=== PATIENT | female | born 1990 | race Caucasian/White ===

== ENCOUNTER 2016-10-02 14:48 | Emergency (ER) | payer MEDICAID ==
[~2016-10-02] VITALS: Ht 157.5 cm; Wt 110.2 kg
[~2016-10-02 14:48] MED LIST: ACYC400T7 PO; BSP10T PO; CITA20TA12 PO; ISOS20TA5 PO; LANS15CA PO; VERA120T78 PO
--- OUTSIDE RECORDS SUMMARY | 2016-10-02 14:52 | XMS REPORT | Continuity of Care Document ---
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 No 07/23/16 12:43pm Do You Have a DPOA? No 07/23/16 12:43pm Chief Complaint and Reason for Visit Chief Complaint Headache/Migraine Reason for Visit Headache Problems Active Problems Medical Problem Onset Date Status Head ache Unknown Acute Migraine Unknown Acute Acute anxiety Unknown Acute Multiple body piercings Unknown Acute Nausea & vomiting Unknown Acute Allergic dermatitis Unknown Acute Diarrhea Unknown Acute Bronchitis Unknown Acute Irritable bowel syndrome (IBS) Unknown Acute UTI (lower urinary tract infection) Unknown Acute Stress Unknown Acute GERD (gastroesophageal reflux disease) Unknown Acute Chest pain, non-cardiac Unknown Acute Headache Unknown Acute Morbid obesity Unknown Chronic Depression Unknown Chronic Asthma Unknown Chronic Surgical Problem Onset Date Status H/O LEEP Unknown Resolved Hx of tonsillectomy Unknown Resolved Medications Current Home Medications Medication Dose Units Route Directions Days/Qty Instructions Start Date Citalopram Hydrobromide 10 Mg 10 Mg Oral Daily 10/07/14 Sucralfate 1 Gm 1 Gm Oral One Time Only 1 10/07/14 Promethazine Hcl 25 Mg 25 Mg Oral As Directed for Nausea/Vomiting 30 may take one every 6 hours 11/13/14 Cyclobenzaprine Hcl (Flexeril) 10 Mg 10 Mg Oral Twice Daily As Needed as needed for Muscle Spasm 10 11/15/14 Ondansetron Hcl 4 Mg 4 Mg Oral Every 6 Hours As Needed as needed for Nausea 12/19/14 Topiramate 25 Mg 25 Mg Oral Daily 01/22/15 Verapamil Hcl 120 Mg Oral Daily 01/22/15 Promethazine Hcl 25 Mg 25 Mg Oral Every 4-6 Hours As Needed as needed for Nausea 02/13/15 Isosorbide Mononitrate 60 Mg 60 Mg Oral Daily 02/18/15 Buspirone Hcl 10 Mg 10 Mg Oral Twice A Day 60 05/01/15 Promethazine Hcl 25 Mg 25 Mg Oral Every 4-6 Hours As Needed as needed for Nausea 07/23/16 Past Home Medications Medication Directions Ordered Status Isosorbide Mononitrate 10 Mg Tablet, 10 Mg Oral Daily 10/07/14 Discontinued Buspirone Hcl 15 Mg Tablet, 15 Mg Oral Daily 10/07/14 Discontinued Promethazine Hcl 50 Mg/1 Ml Vial, 25 Mg Intramusc One Time Only for Pain 09/09 Discontinued Hydromorphone Hcl 2 Mg/1 Ml Vial, 2 Mg Intramusc One Time Only for Pain 10/07 Discontinued Promethazine Hcl 25 Mg/1 Ml Vial, 25 Mg Iv/Im One Time Only 10/15/14 Discontinued Hydromorphone Hcl 2 Mg/1 Ml Vial, 2 Mg Iv/Im One Time Only 10/15/14 Discontinued Buspirone Hcl 10 Mg Tablet, 10 Mg Oral Daily 10/15/14 Discontinued Promethazine Hcl 25 Mg/1 Ml Vial, 25 Mg Intraven One Time Only 10/17/14 Discontinued Hydromorphone Hcl 2 Mg/1 Ml Vial, 1 Mg Intramusc One Time Only 10/17/14 Discontinued Hydromorphone Hcl 2 Mg/1 Ml Vial, 1 Mg Intramusc One Time Only 10/21/14 Discontinued Promethazine Hcl 50 Mg/1 Ml Vial, 25 Mg Intramusc One Time Only 10/21/14 Discontinued Isosorbide Mononitrate 60 Mg Tab.er.24h, 60 Mg Oral Daily 10/29/14 Discontinued Verapamil Hcl Tablet, 120 Mg Oral Daily 10/29/14 Discontinued Cefdinir 300 Mg Capsule, 300 Mg Oral Daily 10/29/14 Discontinued Baclofen 10 Mg Tablet, 10 Mg Oral Three Times Daily As Needed for Headache Discontinued Amox Tr/Potassium Clavulanate 1 Each Tablet, 875 Mg Oral Twice A Day for Sinusitis 10/29/14 Discontinued Buspirone Hcl 10 Mg Tablet, 10 Mg Oral Twice A Day 11/08/14 Discontinued Topiramate 25 Mg Tablet, 25 Mg Oral Daily 11/08/14 Discontinued Sodium Chloride 1,000 Ml Iv.soln, 1000 Ml Intraven One Time Only 11/12/14 Discontinued Promethazine Hcl 25 Mg/1 Ml Vial, 25 Mg Intraven One Time Only 11/12/14 Discontinued Orphenadrine Citrate 30 Mg/1 Ml Vial, 60 Mg Intramusc One Time Only 11/12/14 Discontinued Promethazine Hcl 25 Mg/ Ampul, 12.5 Mg Intramusc One Time Only 11/13/14 Discontinued Promethazine Hcl 50 Mg/1 Ml Vial, 50 Mg Intramusc One Time Only 11/15/14 Discontinued Sodium Chloride 1,000 Ml Iv.soln, 1000 Ml Intraven One Time Only 11/15/14 Discontinued Promethazine Hcl 25 Mg/1 Ml Vial, 50 Mg Intramusc One Time Only 12/02/14 Discontinued Sodium Chloride 1,000 Ml Iv.soln, 1000 Ml Intraven One Time Only 02/13/15 Discontinued Promethazine Hcl 50 Mg/1 Ml Vial, 50 Mg Intramusc One Time Only 02/13/15 Discontinued Ondansetron Hcl/Pf 4 Mg/2 Ml Vial, 4 Mg Intramusc One Time Only 03/15/15 Discontinued Ondansetron 4 Mg Tab.rapdis, 4 Mg Oral One Time Only 06/04/15 Discontinued Social History Social History Problem Response Recorded Date/Time History of Street Drugs? No 07/23/2016 12:42pm Hx Alcohol Use No 07/23/2016 12:42pm Query Response Start Date Stop Date Smoking status: Never smoker Hospital Discharge Instructions No hospital discharge instructions. Plan of Care Discharge Date 07/23/16 1:27pm Disposition HOME, ROUTINE DIS/ASST LIVING Condition at Discharge Stable & Improved Instructions/Education Provided Tension Headache (ED) Prescriptions See Medication Section Referrals No Primary Care Provider - Additional Instructions/Education Activity Restrictions: Call the doctor's office for an appointment in the next week. No driving today. IMPORTANT: We examined and treated you today on an emergency basis only. In most cases, you must let your doctor check you again. Tell your doctor about any new or lasting problems. We cannot recognize and treat all injuries or illnesses in one Emergency Department visit. If you had special tests, such as EKG's or X-rays, we will review them again within 24 hours. We will call you if there are any new suggestions. YOU ARE THE MOST IMPORTANT FACTOR IN YOUR RECOVERY. Follow these instructions carefully. Take your medicines as prescribed. Most important, see a doctor again as discussed. If you have problems that we have not discussed, call or visit your doctor right away. [facility] Emergency Department Functional Status No functional status results. Allergies, Adverse Reactions, Alerts Allergen Type Severity Reaction Status Last Updated Sulfa (Sulfonamide Antibiotics) Allergy Mild hives Active 10/07/14 Morphine Allergy Unknown Active 02/06/15 Tramadol Adverse Reaction Mild nausea/vomiting Active 10/07/14 Metoclopramide Allergy Unknown Active 07/18/16 Ketorolac Adverse Reaction Mild nausea vomiting Active 10/07/14 Immunizations No immunization records. Vital Signs Acute Vital Signs Vital Response Date/Time Temperature (Fahrenheit) 98.2 degrees F (97.6 - 99.5) 07/23/2016 12:47pm Pulse Pulse Rate 64 bpm (60 - 100) 07/23/2016 1:27pm Respiratory Rate 16 bpm (10 - 24) 07/23/2016 1:27pm Oxygen Saturation O2 Sat by Pulse Oximetry 98 % (93 - 100) 07/23/2016 1:27pm Blood Pressure 125/57 mm Hg 07/23/2016 1:27pm Blood Pressure Mean 79 mm Hg 07/23/2016 1:27pm Height 5 ft 1 in Weight 232 lb Body Mass Index 43.8 kg/m^2 Ambulatory Vital Signs Vital Response Date/Time Height 5 ft 1 in 06/04/2015 2:38pm Weight 217 lbs 06/04/2015 2:38pm Temperature, Tympanic 99.1 degrees F 06/04/2015 2:38pm Pulse Rate 69 bpm 06/04/2015 2:38pm Respiration Rate 20 bpm 06/04/2015 2:38pm Body Surface Area 2.11 m2 06/04/2015 2:38pm Body Mass Index 41.0 kg/m2 06/04/2015 2:38pm Pulse Oximetry Pulse Oximetry 06/04/2015 2:38pm Results Laboratory Results Test Name Result Units Flags Reference Collection Date/Time Result Date/ Time Comments Bedside Urine Color (LAB) STRAW YELLOW 07/15/2016 5:06pm 07/15/2016 5 :17pm Urine Appearance CLEAR CLEAR 07/15/2016 5:06pm 07/15/2016 5:17pm Bedside Urine Glucose (UA) NORMAL mg/dL NORMAL 07/15/2016 5:06pm 2015 5:17pm Bedside Urine Bilirubin (LAB) NEGATIVE NEGATIVE 07/15/2016 5:06pm 5:17pm Bedside Urine Ketones (LAB) NEGATIVE NEGATIVE 07/15/2016 5:06pm 07/15 5:17pm Bedside Urine Specific [place] (LAB 1.015 1.005-1.030 07/15/2016 5: 06pm 07/15/2016 5:17pm Bedside Urine Blood NEGATIVE NEGATIVE 07/15/2016 5:06pm 07/15/2016 5: 17pm Bedside Urine pH (LAB) 6.0 4.0-8.0 07/15/2016 5:06pm 07/15/2016 5: 17pm Bedside Urine Protein (LAB) NEGATIVE mg/dL NEGATIVE 07/15/2016 5:06pm 07/15/2016 5:17pm Bedside Urine Urobilinogen (LAB) NORMAL NORMAL 07/15/2016 5:06pm 5:17pm Bedside Urine Nitrite (LAB) NEGATIVE NEGATIVE 07/15/2016 5:06pm 07/15 5:17pm Bedside Urine Leukocyte Esterase (L TRACE * NEGATIVE 07/15/2016 5:06pm 07/15/2016 5:17pm White Blood Count 6.1 1000/cmm 3.80-10.80 07/15/2016 4:39pm 07/15/2016 4:59pm Red Blood Count 4.61 MIL/uL 3.80-5.10 07/15/2016 4:39pm 07/15/2016 4: 59pm Hemoglobin 14.3 g/dL 11.7-15.5 07/15/2016 4:39pm 07/15/2016 4:59pm Hematocrit 39.2 % 35.0-45.0 07/15/2016 4:39pm 07/15/2016 4:59pm Mean Corpuscular Volume 85.0 fL 80.0-100.0 07/15/2016 4:39pm 2015 4:59pm Mean Corpuscular Hemoglobin 31.0 pg 27.0-33.0 07/15/2016 4:39pm 2015 4:59pm Mean Corpuscular Hemoglobin Concent 36.5 g/dL H 32.0-36.0 07/15/2016 4: 39pm 07/15/2016 4:59pm Platelet Count 195 1000/uL 140-400 07/15/2016 4:39pm 07/15/2016 4:59pm Neutrophils (%) (Auto) 50.2 % 50.0-70.0 07/15/2016 4:39pm 07/15/2016 4: 59pm Lymphocytes (%) (Auto) 41.9 % 20.0-44.0 07/15/2016 4:39pm 07/15/2016 4: 59pm Monocytes (%) (Auto) 6.7 % 4.0-13.0 07/15/2016 4:39pm 07/15/2016 4: 59pm Eosinophils (%) (Auto) 1.0 % <=4.0 07/15/2016 4:39pm 07/15/2016 4:59pm Basophils (%) (Auto) 0.2 % <=3.0 07/15/2016 4:39pm 07/15/2016 4:59pm Neutrophils # (Auto) 3.06 1000/uL 1.90-7.60 07/15/2016 4:39pm 2015 4:59pm Lymphocytes # (Auto) 2.55 1000/uL 0.80-4.75 07/15/2016 4:39pm 2015 4:59pm Monocytes # (Auto) 0.41 1000/uL 0.15-1.40 07/15/2016 4:39pm 07/15/2016 4:59pm Eosinophils # (Auto) 0.06 1000/uL 0.00-0.40 07/15/2016 4:39pm 2015 4:59pm Basophils # (Auto) 0.01 1000/uL 0.00-0.30 07/15/2016 4:39pm 07/15/2016 4:59pm Red Cell Distribution Width 12.6 % 11.0-15.0 07/15/2016 4:39pm 2015 4:59pm Mean Platelet Volume 9.6 fL 8.7-11.9 07/15/2016 4:39pm 07/15/2016 4: 59pm Sodium Level 140 mmol/L 136-145 07/15/2016 4:39pm 07/15/2016 5:23pm Potassium Level 3.7 mmol/L 3.6-4.5 07/15/2016 4:39pm 07/15/2016 5:23pm Chloride Level 112 mmol/L H 97-109 07/15/2016 4:39pm 07/15/2016 5:23pm Carbon Dioxide Level 18 mEq/L 17-26 07/15/2016 4:39pm 07/15/2016 5: 23pm Anion Gap 14 8-18 07/15/2016 4:39pm 07/15/2016 5:23pm Glucose Level 102 mg/dL H 70-99 07/15/2016 4:39pm 07/15/2016 5:23pm Blood Urea Nitrogen 11.0 mg/dL 7.0-18.7 07/15/2016 4:39pm 07/15/2016 5: 23pm Creatinine 0.78 mg/dL 0.72-1.25 07/15/2016 4:39pm 07/15/2016 5:23pm Estimated GFR (Non- >=61 >60 07/15/2016 4:39pm 2015 5:23pm eGFR is measured in mL/min/1.73m2. If patient is -[place], multiply reported result by 1.21. BUN/Creatinine Ratio 14 7-25 07/15/2016 4:39pm 07/15/2016 5:23pm Calculated Osmolality 290 mOSM/kg 280-300 07/15/2016 4:39pm 07/15/2016 5:23pm Calcium Level 8.7 mg/dL 8.4-10.0 07/15/2016 4:39pm 07/15/2016 5:23pm Total Protein 6.3 g/dL 5.7-7.9 07/15/2016 4:39pm 07/15/2016 5:23pm Albumin 4.0 g/dL 3.3-4.8 07/15/2016 4:39pm 07/15/2016 5:23pm Globulin 2.3 g/dL 1.0-4.5 07/15/2016 4:39pm 07/15/2016 5:23pm Total Bilirubin 0.3 mg/gL 0.2-1.2 07/15/2016 4:39pm 07/15/2016 5:23pm Alkaline Phosphatase 67 U/L 40-150 07/15/2016 4:39pm 07/15/2016 5:23pm Aspartate Amino Transf (AST/SGOT) 25 U/L 5-34 07/15/2016 4:39pm 2015 5:23pm Alanine Aminotransferase (ALT/SGPT) 38 U/L 0-55 07/15/2016 4:39pm 07/15 5:23pm AST/ALT Ratio 0.66 0.10-40.00 07/15/2016 4:39pm 07/15/2016 5:23pm Creatine Kinase 92 U/L 29-168 07/15/2016 4:39pm 07/15/2016 5:23pm Creatine Kinase MB 0.6 ng/mL <=6.0 07/15/2016 4:39pm 07/15/2016 5:23pm Creatine Kinase MB Relative Index 1 % <6 07/15/2016 4:39pm 07/15/2016 5 :23pm Troponin < 0.01 ng/mL <=0.05 07/15/2016 4:39pm 07/15/2016 5:23pm Erythrocyte Sedimentation Rate 2 mm/hr 0-25 07/15/2016 4:39pm 2015 5:27pm Bedside Urine HCG, Qualitative NEGATIVE NEGATIVE 07/18/2016 5:45pm 5:55pm Bedside Urine Test QC ACCEPTABLE 07/18/2016 5:45pm 2015 5:55pm [id number] TESTING PERFORMED BY PERSONNEL OF: [address] [id number] Bedside Urine Color (LAB) YELLOW YELLOW 07/18/2016 5:45pm 07/18/2016 5:51pm Urine Appearance SLIGHTLY CLOUDY * CLEAR 07/18/2016 5:45pm 07/18/2016 5:51pm Bedside Urine Glucose (UA) NORMAL mg/dL NORMAL 07/18/2016 5:45pm 2015 5:51pm Bedside Urine Bilirubin (LAB) NEGATIVE NEGATIVE 07/18/2016 5:45pm 5:51pm Bedside Urine Ketones (LAB) NEGATIVE NEGATIVE 07/18/2016 5:45pm 07/18 5:51pm Bedside Urine Specific [place] (LAB 1.015 1.005-1.030 07/18/2016 5: 45pm 07/18/2016 5:51pm Bedside Urine Blood NEGATIVE NEGATIVE 07/18/2016 5:45pm 07/18/2016 5: 51pm Bedside Urine pH (LAB) 7.0 4.0-8.0 07/18/2016 5:45pm 07/18/2016 5: 51pm Bedside Urine Protein (LAB) NEGATIVE mg/dL NEGATIVE 07/18/2016 5:45pm 07/18/2016 5:51pm Bedside Urine Urobilinogen (LAB) NORMAL NORMAL 07/18/2016 5:45pm 5:51pm Bedside Urine Nitrite (LAB) NEGATIVE NEGATIVE 07/18/2016 5:45pm 07/18 5:51pm Bedside Urine Leukocyte Esterase (L NEGATIVE NEGATIVE 07/18/2016 5: 45pm 07/18/2016 5:51pm White Blood Count 5.8 1000/cmm 3.80-10.80 07/18/2016 5:30pm 07/18/2016 5:45pm Red Blood Count 4.44 MIL/uL 3.80-5.10 07/18/2016 5:30pm 07/18/2016 5: 45pm Hemoglobin 13.8 g/dL 11.7-15.5 07/18/2016 5:30pm 07/18/2016 5:45pm Hematocrit 38.0 % 35.0-45.0 07/18/2016 5:30pm 07/18/2016 5:45pm Mean Corpuscular Volume 85.6 fL 80.0-100.0 07/18/2016 5:30pm 2015 5:45pm Mean Corpuscular Hemoglobin 31.1 pg 27.0-33.0 07/18/2016 5:30pm 2015 5:45pm Mean Corpuscular Hemoglobin Concent 36.3 g/dL H 32.0-36.0 07/18/2016 5: 30pm 07/18/2016 5:45pm Platelet Count 202 1000/uL 140-400 07/18/2016 5:30pm 07/18/2016 5:45pm Neutrophils (%) (Auto) 50.1 % 50.0-70.0 07/18/2016 5:30pm 07/18/2016 5: 45pm Lymphocytes (%) (Auto) 39.8 % 20.0-44.0 07/18/2016 5:30pm 07/18/2016 5: 45pm Monocytes (%) (Auto) 8.7 % 4.0-13.0 07/18/2016 5:30pm 07/18/2016 5: 45pm Eosinophils (%) (Auto) 0.9 % <=4.0 07/18/2016 5:30pm 07/18/2016 5:45pm Basophils (%) (Auto) 0.5 % <=3.0 07/18/2016 5:30pm 07/18/2016 5:45pm Neutrophils # (Auto) 2.88 1000/uL 1.90-7.60 07/18/2016 5:30pm 2015 5:45pm Lymphocytes # (Auto) 2.29 1000/uL 0.80-4.75 07/18/2016 5:30pm 2015 5:45pm Monocytes # (Auto) 0.50 1000/uL 0.15-1.40 07/18/2016 5:30pm 07/18/2016 5:45pm Eosinophils # (Auto) 0.05 1000/uL 0.00-0.40 07/18/2016 5:30pm 2015 5:45pm Basophils # (Auto) 0.03 1000/uL 0.00-0.30 07/18/2016 5:30pm 07/18/2016 5:45pm Red Cell Distribution Width 12.9 % 11.0-15.0 07/18/2016 5:30pm 2015 5:45pm Mean Platelet Volume 9.4 fL 8.7-11.9 07/18/2016 5:30pm 07/18/2016 5: 45pm Sodium Level 142 mmol/L 136-145 07/18/2016 5:30pm 07/18/2016 6:00pm Potassium Level 3.4 mmol/L L 3.6-4.5 07/18/2016 5:30pm 07/18/2016 6: 00pm Chloride Level 113 mmol/L H 97-109 07/18/2016 5:30pm 07/18/2016 6:00pm Carbon Dioxide Level 22 mEq/L 17-26 07/18/2016 5:30pm 07/18/2016 6: 00pm Anion Gap 10 8-18 07/18/2016 5:30pm 07/18/2016 6:00pm Glucose Level 93 mg/dL 70-99 07/18/2016 5:30pm 07/18/2016 6:00pm Blood Urea Nitrogen 10.1 mg/dL 7.0-18.7 07/18/2016 5:30pm 07/18/2016 6: 00pm Creatinine 0.84 mg/dL 0.72-1.25 07/18/2016 5:30pm 07/18/2016 6:00pm Estimated GFR (Non- >=61 >60 07/18/2016 5:30pm 2015 6:00pm eGFR is measured in mL/min/1.73m2. If patient is -[place], multiply reported result by 1.21. BUN/Creatinine Ratio 12 7-25 07/18/2016 5:30pm 07/18/2016 6:00pm Calculated Osmolality 293 mOSM/kg 280-300 07/18/2016 5:30pm 07/18/2016 6:00pm Calcium Level 8.8 mg/dL 8.4-10.0 07/18/2016 5:30pm 07/18/2016 6:00pm Total Protein 6.4 g/dL 5.7-7.9 07/18/2016 5:30pm 07/18/2016 6:00pm Albumin 4.1 g/dL 3.3-4.8 07/18/2016 5:30pm 07/18/2016 6:00pm Globulin 2.3 g/dL 1.0-4.5 07/18/2016 5:30pm 07/18/2016 6:00pm Total Bilirubin 0.5 mg/gL 0.2-1.2 07/18/2016 5:30pm 07/18/2016 6:00pm Alkaline Phosphatase 68 U/L 40-150 07/18/2016 5:30pm 07/18/2016 6:00pm Aspartate Amino Transf (AST/SGOT) 18 U/L 5-34 07/18/2016 5:30pm 2015 6:00pm Alanine Aminotransferase (ALT/SGPT) 30 U/L 0-55 07/18/2016 5:30pm 07/18 6:00pm AST/ALT Ratio 0.60 0.10-40.00 07/18/2016 5:30pm 07/18/2016 6:00pm Lipase 39 U/L 8-78 07/18/2016 5:30pm 07/18/2016 6:00pm Prothrombin Time 10.0 seconds 9.7-12.1 07/18/2016 5:30pm 07/18/2016 5: 51pm Prothromb Time International Ratio 0.9 0.9-1.1 07/18/2016 5:30pm 5:51pm INR reference interval applies to patients not on anticoagulant therapy. The INR is a calculated value and is used to guide oral anticoagulation therapy. Recommended INR Range Moderate Intensity Warfarin Therapy 2.0 - 3.0 Higher Intensity Warfarin Therapy 2.5 - 3.5 Activated Partial Thromboplast Time 29 seconds 24-33 07/18/2016 5:30pm 07/18/2016 5:51pm Thyroid Stimulating Hormone (TSH) 3.38 uIU/mL 0.40-4.50 07/18/2016 5: 30pm 07/18/2016 6:21pm Creatine Kinase 119 U/L 29-168 07/18/2016 5:30pm 07/18/2016 6:05pm Creatine Kinase MB 0.7 ng/mL <=6.0 07/18/2016 5:30pm 07/18/2016 6:05pm Creatine Kinase MB Relative Index 1 % <6 07/18/2016 5:30pm 07/18/2016 6 :05pm Troponin < 0.01 ng/mL <=0.05 07/18/2016 5:30pm 07/18/2016 6:05pm B-Type Natriuretic Peptide 74.3 pg/mL <100.0 07/18/2016 5:30pm 2015 6:20pm B-type natriuretic peptide (BNP) is indicated as an aid in the diagnosis and assessment of the severity of heart failure. Levels of BNP have been shown to be elevated in patients with cardiac dysfunction. BNP levels provide clinically useful information concerning the diagnosis and management of left ventricular dysfunction and heart failure, which complements other diagnostic testing procedures. White Blood Count 6.1 1000/cmm 3.80-10.80 07/21/2016 4:0307/21/2016 4:32pm Red Blood Count 5.00 MIL/uL 3.80-5.10 07/21/2016 4:0307/21/2016 4: 32pm Hemoglobin 15.1 g/dL 11.7-15.5 07/21/2016 4:0307/21/2016 4:32pm Hematocrit 42.1 % 35.0-45.0 07/21/2016 4:07/21/2016 4:32pm Mean Corpuscular Volume 84.2 fL 80.0-100.0 07/21/2016 4:2015 4:32pm Mean Corpuscular Hemoglobin 31.3 pg 27.0-33.0 07/21/2016 4:2015 4:32pm Mean Corpuscular Hemoglobin Concent 37.2 g/dL H 32.0-36.0 07/21/2016 4: 07/21/2016 4:32pm Platelet Count 215 1000/uL 140-400 07/21/2016 4:07/21/2016 4:32pm Neutrophils (%) (Auto) 51.1 % 50.0-70.0 07/21/2016 4:07/21/2016 4: 32pm Lymphocytes (%) (Auto) 40.2 % 20.0-44.0 07/21/2016 4:07/21/2016 4: 32pm Monocytes (%) (Auto) 6.6 % 4.0-13.0 07/21/2016 4:07/21/2016 4: 32pm Eosinophils (%) (Auto) 1.1 % <=4.0 07/21/2016 4:07/21/2016 4:32pm Basophils (%) (Auto) 1.0 % <=3.0 07/21/2016 4:0307/21/2016 4:32pm Neutrophils # (Auto) 3.11 1000/uL 1.90-7.60 07/21/2016 4:2015 4:32pm Lymphocytes # (Auto) 2.45 1000/uL 0.80-4.75 07/21/2016 4:03pm 2015 4:32pm Monocytes # (Auto) 0.40 1000/uL 0.15-1.40 07/21/2016 4:03pm 07/21/2016 4:32pm Eosinophils # (Auto) 0.07 1000/uL 0.00-0.40 07/21/2016 4:03pm 2015 4:32pm Basophils # (Auto) 0.06 1000/uL 0.00-0.30 07/21/2016 4:03pm 07/21/2016 4:32pm Red Cell Distribution Width 12.7 % 11.0-15.0 07/21/2016 4:03pm 2015 4:32pm Mean Platelet Volume 9.4 fL 8.7-11.9 07/21/2016 4:03pm 07/21/2016 4: 32pm Sodium Level 142 mmol/L 136-145 07/21/2016 4:03pm 07/21/2016 4:24pm Potassium Level 3.8 mmol/L 3.6-4.5 07/21/2016 4:03pm 07/21/2016 4:24pm Chloride Level 109 mmol/L 97-109 07/21/2016 4:03pm 07/21/2016 4:24pm Carbon Dioxide Level 23 mEq/L 17-26 07/21/2016 4:03pm 07/21/2016 4: 24pm Anion Gap 14 8-18 07/21/2016 4:03pm 07/21/2016 4:24pm Glucose Level 83 mg/dL 70-99 07/21/2016 4:03pm 07/21/2016 4:24pm Blood Urea Nitrogen 9.0 mg/dL 7.0-18.7 07/21/2016 4:03pm 07/21/2016 4: 24pm Creatinine 0.90 mg/dL 0.72-1.25 07/21/2016 4:03pm 07/21/2016 4:24pm Estimated GFR (Non- >=61 >60 07/21/2016 4:03pm 2015 4:24pm eGFR is measured in mL/min/1.73m2. If patient is -[place], multiply reported result by 1.21. BUN/Creatinine Ratio 10 7-25 07/21/2016 4:03pm 07/21/2016 4:24pm Calculated Osmolality 292 mOSM/kg 280-300 07/21/2016 4:03pm 07/21/2016 4:24pm Calcium Level 9.4 mg/dL 8.4-10.0 07/21/2016 4:03pm 07/21/2016 4:24pm Ambulatory Laboratory Results Test Name Result Units Flags Reference Result Date/Time Comments Bedside Blood Urea Nitrogen 10 mg/dL 06/04/2015 3:34pm Bedside Chloride 105 mmol/L 06/04/2015 3:34pm Bedside Total CO2 23 mmol/L 06/04/2015 3:34pm Bedside Creatinine 1.0 mg/dL 06/04/2015 3:34pm N/A ACCEPTABLE 10/29/2014 3:32pm Influenza Type A Antigen NEGATIVE(N=NEGATIVE) 10/29/2014 3:32pm Influenza Type B Antigen NEGATIVE(N=NEGATIVE) 10/29/2014 3:32pm Bedside Anion Gap 18 mmol/L 06/04/2015 3:34pm Bedside Glucose 98 mg/dL 06/04/2015 3:34pm Bedside Hematocrit 41 % 06/04/2015 3:34pm Bedside Hemoglobin (Calculated) 13.9 g/dL 06/04/2015 3:34pm Bedside Ionized Calcium (Senthil) 1.19 mmol/L 06/04/2015 3:34pm Bedside Potassium 3.9 mmol/L 06/04/2015 3:34pm Urinalysis Dipstick [id number] 06/04/2015 3:12pm Bedside Sodium 141 mmol/L 06/04/2015 3:34pm Bedside Urine HCG, Qualitative NEGATIVE(N=NEGATIVE) 02/13/2015 12: 03pm N/A ACCEPTABLE 02/13/2015 12:03pm Bedside White Blood Count 6.5 10^9/L 4.0-11.0 06/04/2015 3:33pm Bedside Urine Bilirubin (LAB) NEGATIVE(N=NEG) 06/04/2015 3:12pm Bedside Urine Blood NEGATIVE(N=NEG) 06/04/2015 3:12pm Bedside Urine Clarity CLEAR (N=CLEAR) 06/04/2015 3:12pm Bedside Urine Color (LAB) STRAW (N=CLEAR) 06/04/2015 3:12pm Bedside Urine Glucose (UA) NEGATIVE (N=NEG) 06/04/2015 3:12pm Bedside Urine Ketones (LAB) NEGATIVE (N=NEG) 06/04/2015 3:12pm Bedside Urine Leukocyte Esterase (L NEGATIVE (N=NEG) 06/04/2015 3: 12pm Bedside Urine Nitrite (LAB) NEGATIVE (N=NEG) 06/04/2015 3:12pm Bedside Urine pH (LAB) 6.0 (N=5-6) 06/04/2015 3:12pm Bedside Urine Protein (LAB) NEGATIVE (N=NEG) 06/04/2015 3:12pm Bedside Urine Specific [place] (LAB 1.030(N=1.000-1.025) 06/04/2015 3:12pm Bedside Urine Urobilinogen (LAB) 0.2 mg/dL (N=<=1.0) 06/04/2015 3: 12pm Procedures Procedure Status Date Provider(s) ROUTINE VENIPUNCTURE Completed 07/15/16 CHEST X-RAY 1 VIEW FRONTAL Completed 07/15/16 COMPREHEN METABOLIC PANEL Completed 07/15/16 URINALYSIS NONAUTO W/SCOPE Completed 07/15/16 ASSAY OF CK (CPK) Completed 07/15/16 CREATINE MB FRACTION Completed 07/15/16 ASSAY OF TROPONIN QUANT Completed 07/15/16 COMPLETE CBC W/AUTO DIFF WBC Completed 07/15/16 RBC SED RATE AUTOMATED Completed 07/15/16 ELECTROCARDIOGRAM TRACING Completed 07/15/16 THER/PROPH/DIAG INJ IV PUSH Completed 07/15/16 TX/PRO/DX INJ NEW DRUG ADDON Completed 07/15/16 EMERGENCY DEPT VISIT Completed 07/15/16 CT ABD & PELV W/CONTRAST Completed 07/18/16 COMPREHEN METABOLIC PANEL Completed 07/18/16 URINALYSIS NONAUTO W/SCOPE Completed 07/18/16 URINE TEST Completed 07/18/16 ASSAY OF CK (CPK) Completed 07/18/16 CREATINE MB FRACTION Completed 07/18/16 ASSAY OF LIPASE Completed 07/18/16 ASSAY OF NATRIURETIC PEPTIDE Completed 07/18/16 ASSAY THYROID STIM HORMONE Completed 07/18/16 ASSAY OF TROPONIN QUANT Completed 07/18/16 COMPLETE CBC W/AUTO DIFF WBC Completed 07/18/16 PROTHROMBIN TIME Completed 07/18/16 THROMBOPLASTIN TIME PARTIAL Completed 07/18/16 ELECTROCARDIOGRAM TRACING Completed 07/18/16 THER/PROPH/DIAG INJ SC/IM Completed 07/18/16 THER/PROPH/DIAG INJ IV PUSH Completed 07/18/16 TX/PRO/DX INJ NEW DRUG ADDON Completed 07/18/16 EMERGENCY DEPT VISIT Completed 07/18/16 12-lead electrocardiogram Active 07/15/16 Vandana Dimas APRN X-ray of chest, single view Active 07/15/16 Vandana Dimas APRN 12-lead electrocardiogram Active 07/18/16 Lala Duarte PA-C Computed tomography of abdomen and pelvis with contrast Active 07/18/16 Lala Duarte PA-C Computed tomography of head without contrast Active 07/21/16 Bryon Crow Encounters Encounter Location Arrival/Admit Date Discharge/Depart Date Attending Provider Departed Emergency Room [facility] 07/23/16 12:44pm 1:27pm Bart Olivas Departed Emergency Room [facility] 07/21/16 2:32pm 5:44pm Bryon Crow Departed Emergency Room [facility] 07/18/16 5:07pm 7:56pm Lala Duarte PA-C Departed Emergency Room [facility] 07/15/16 4:14pm 6:00pm Vandana Dimas APRN Recent Diagnosis
--- NOTE | 2016-10-02 15:12 | NUR ---
pt seems to be a poor historian, able to answer "ER questions" before they are asked. puts them in her dialogue "nothing makes it better, nothing makes it worse", etc... rubio to list her allergies or her meds she takes daily
[2016-10-02] MEDS ORDERED: ONDANSETRON 2 MG/ML (Z0FRAN) 2 ML VIAL IV ONE (15:40)
[2016-10-02] MEDS ORDERED: ORPHENADRINE 60 MG/2 ML (NORFLEX) AMP IV ONE ×2 (15:40→16:30)
[2016-10-02] MEDS ORDERED: diphenhydrAMINE 50 MG/ML INJ (BENADRYL) IV ONE (15:40)
[2016-10-02] MEDS ORDERED: SODIUM CHLORIDE FLUSH 10 ML SYR IV PRN (15:40)
[2016-10-02] MEDS ORDERED: SODIUM CHLORIDE FLUSH 3 ML SYR IV PRN (15:50)
[2016-10-02 15:57] LABS: BASOPHILS % (AUTO) 0 % (0-2); EOSINOPHILS # (AUTO) 0.1 10^3uL; EOSINOPHILS % (AUTO) 2 % (0-4); LYMPHOCYTES # (AUTO) 2.5 X10^3; MEAN CORPUSCULAR HEMOGLOBIN 30.3 PG (26.0-34.0); MEAN CORPUSCULAR VOLUME 84 FL (80-100); MEAN PLATELET VOLUME 9.7 FL (6.0-9.5); MONOCYTES # (AUTO) 0.4 X10^3; MONOCYTES % (AUTO) 8 % (3-11); NEUTROPHILS # (AUTO) 2.7 X10^3; NEUTROPHILS % (AUTO) 46 % (51-67); PLATELET COUNT 215 10^3uL (150-450); WHITE BLOOD COUNT 5.76 10^3uL (4.0-11.0)
[2016-10-02] MEDS ORDERED: OMEP20CA12 PO (16:05)
[2016-10-02 16:08] LABS: ALBUMIN 4.8 g/dL (3.4-5.0); ANION GAP 16.3 MEQ/L (3-15); CALCULATED IONIZED CALCIUM 3.9 mg/dL (3.8-4.6); TOTAL PROTEIN 7.8 g/dL (6.4-8.5)
--- NOTE | 2016-10-02 16:15 | NUR ---
NOW REPORTS HER HEADACHE HAS INCREASED FROM "6" TO "10" AND THAT HER CHEST IS HURTING MORE WITH DEEP BREATH OR COUGH.
[2016-10-02] MEDS ORDERED: HYDROmorphone 1 MG/ML (DILAUDID) SYRINGE IV ONE (16:30)
[2016-10-02] MEDS ORDERED: methylPREDNISolone 125 MG (Solu-MEDROL) VIAL IV ONE (16:55)
[2016-10-02 17:53] VITALS: BP 121/70
[2016-10-05] MEDS ORDERED: CITA40TA5 PO (10:39)
[2016-10-05] MEDS ORDERED: MIRT30TA PO (10:53)
[2016-10-05] MEDS ORDERED: TOPI25TA36 PO (10:53)
[2016-10-05] MEDS ORDERED: SULI200T8 PO (10:53)
[2016-10-05] MEDS ORDERED: ALBU8CC IH (10:53)
[2016-10-05] MEDS ORDERED: PROP20TA5 PO (10:53)
[2016-10-05] MEDS ORDERED: PANT40TA2 PO (10:53)
[2016-10-05] MEDS ORDERED: PRM25T PO (10:53)
[2016-10-08] MEDS ORDERED: IBP200T PO (07:54)
[2016-10-08] MEDS ORDERED: AC325T PO (07:54)
[2016-10-08] MEDS ORDERED: ONDAN4ODT PO (07:54)
[2016-10-09] MEDS ORDERED: BUSP10TA95 PO (19:58)
[2016-10-20] MEDS ORDERED: AMIT25TA9 PO (19:14)
[2016-10-20] MEDS ORDERED: DICY10CA26 PO (19:14)
[2016-10-20] MEDS ORDERED: SCR1T PO (19:14)
[2016-10-23] MEDS ORDERED: DICY10CA59 PO (02:46)
[2016-10-23] MEDS ORDERED: METR500T17 PO (21:31)
[2016-10-23] MEDS ORDERED: CEPH-507 PO (21:31)
[2016-11-05] MEDS ORDERED: DULO30CA3 PO (20:34)
== END 2016-10-02 17:55 | disposition home or self-care (01) ==
LOC: ED 14:50
DX: G43.109 Migraine with aura, not intractable, without status migrainosus (principal)
CPT/HCPCS: 36415; 80053; 85025; 86140; 96361; 96374; 96375; 96376; 99283; J1170; J1200; J2360; J2405; J2930; J7030

== ENCOUNTER 2016-10-03 10:42 | Emergency (ER) | payer MEDICAID ==
[~2016-10-03] VITALS: Ht 157.5 cm; Wt 110.0 kg
[~2016-10-03 10:42] MED LIST changes: +OMEP20CA12 PO
[2016-10-03] MEDS ORDERED: METOCLOPRAMIDE 10 MG/2 ML (REGLAN) VIAL IV ONE (11:05)
[2016-10-03] MEDS ORDERED: diphenhydrAMINE 50 MG/ML INJ (BENADRYL) IV ONE (11:30)
[2016-10-03 11:44] LABS: BASOPHILS % (AUTO) 0 % (0-2); EOSINOPHILS % (AUTO) 0 % (0-4); LYMPHOCYTES # (AUTO) 1.9 X10^3; MEAN CORPUSCULAR HEMOGLOBIN 30.8 PG (26.0-34.0); MEAN CORPUSCULAR VOLUME 86 FL (80-100); MEAN PLATELET VOLUME 10.2 FL (6.0-9.5); MONOCYTES # (AUTO) 0.8 X10^3; MONOCYTES % (AUTO) 6 % (3-11); NEUTROPHILS # (AUTO) 9.5 X10^3; NEUTROPHILS % (AUTO) 78 % (51-67); PLATELET COUNT 205 10^3uL (150-450); WHITE BLOOD COUNT 12.18 10^3uL (4.0-11.0)
[2016-10-03] MEDS ORDERED: PROMETHAZINE HCL INJ 25 MG in SODIUM CHLORIDE 25 ML IV ONE (11:50)
[2016-10-03] MEDS ORDERED: HALOPERIDOL 5 MG/ML (HALDOL) 1 ML AMP IV ONE (11:50)
--- NOTE | 2016-10-03 11:56 | Diagnostic Imaging Report ---
PROCEDURE: CT head without contrast. TECHNIQUE: Multiple contiguous axial images were obtained through the brain without the use of intravenous contrast. INDICATION: Headache. COMPARISON: None available. FINDINGS: No intracranial hemorrhage. No intracranial mass, mass effect, midline shift, herniation, hydrocephalus, or extra-axial fluid collection. No definite CT evidence of an acute ischemic infarction. The visualized orbits are unremarkable. The visualized paranasal sinuses are clear. The calvarium and extracalvarial soft tissues are unremarkable. IMPRESSION: Unremarkable examination without acute intracranial abnormality. Dictated by: Dictated on workstation # [id number]
--- NOTE | 2016-10-03 11:56 | NUR ---
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
[2016-10-03 11:59] LABS: ALBUMIN 4.4 g/dL (3.4-5.0); ANION GAP 17.6 MEQ/L (3-15); TOTAL PROTEIN 7.5 g/dL (6.4-8.5)
--- NOTE | 2016-10-03 12:05 | NUR ---
states pain down to a 6
[2016-10-03 12:29] VITALS: BP 119/53
[2016-10-05] MEDS ORDERED: CITA40TA5 PO (10:39)
[2016-10-05] MEDS ORDERED: PRM25T PO (10:53)
[2016-10-05] MEDS ORDERED: SULI200T8 PO (10:53)
[2016-10-05] MEDS ORDERED: PROP20TA5 PO (10:53)
[2016-10-05] MEDS ORDERED: TOPI25TA36 PO (10:53)
[2016-10-05] MEDS ORDERED: ALBU8CC IH (10:53)
[2016-10-05] MEDS ORDERED: PANT40TA2 PO (10:53)
[2016-10-05] MEDS ORDERED: MIRT30TA PO (10:53)
[2016-10-08] MEDS ORDERED: IBP200T PO (07:54)
[2016-10-08] MEDS ORDERED: ONDAN4ODT PO (07:54)
[2016-10-08] MEDS ORDERED: AC325T PO (07:54)
[2016-10-09] MEDS ORDERED: BUSP10TA95 PO (19:58)
[2016-10-20] MEDS ORDERED: SCR1T PO (19:14)
[2016-10-20] MEDS ORDERED: DICY10CA26 PO (19:14)
[2016-10-20] MEDS ORDERED: AMIT25TA9 PO (19:14)
[2016-10-23] MEDS ORDERED: DICY10CA59 PO (02:46)
[2016-10-23] MEDS ORDERED: METR500T17 PO (21:31)
[2016-10-23] MEDS ORDERED: CEPH-507 PO (21:31)
[2016-11-05] MEDS ORDERED: DULO30CA3 PO (20:34)
== END 2016-10-03 12:25 | disposition home or self-care (01) ==
LOC: ED 10:43
DX: G43.909 Migraine, unspecified, not intractable, without status migrainosus (principal)
CPT/HCPCS: 36415; 70450; 80053; 85025; 86140; 96365; 96375; 99283; J1200; J1630; J2550

== ENCOUNTER 2016-10-04 15:29 | Observation (INO) | payer MEDICAID ==
[~2016-10-04] VITALS: Ht 154.9 cm; Wt 107.4 kg
[2016-10-04] MEDS ORDERED: ONDANSETRON 2 MG/ML (Z0FRAN) 2 ML VIAL IV ONE (15:40)
[2016-10-04] MEDS ORDERED: ORPHENADRINE 60 MG/2 ML (NORFLEX) AMP IV ONE (15:40)
[2016-10-04] MEDS ORDERED: diphenhydrAMINE 50 MG/ML INJ (BENADRYL) IV ONE ×2 (15:40→19:30)
[2016-10-04 16:00] LABS: BILIRUBIN,URINE Negative (Negative); CLARITY,URINE Clear; COLOR,URINE Yellow; GLUCOSE, URINE (UA) Negative (Negative); LEUKOCYTE ESTERASE ,URINE Negative (Negative); PH,URINE 6.5 (5.0 - 8.0)
[2016-10-04 16:01] LABS: BASOPHILS % (AUTO) 0 % (0-2); EOSINOPHILS % (AUTO) 1 % (0-4); LYMPHOCYTES # (AUTO) 2.2 X10^3; MEAN CORPUSCULAR HEMOGLOBIN 30.2 PG (26.0-34.0); MEAN CORPUSCULAR HGB CONC 36.1 g/dL (31.0-37.0); MEAN CORPUSCULAR VOLUME 84 FL (80-100); MEAN PLATELET VOLUME 9.7 FL (6.0-9.5); MONOCYTES # (AUTO) 0.5 X10^3; MONOCYTES % (AUTO) 8 % (3-11); NEUTROPHILS # (AUTO) 3.7 X10^3; NEUTROPHILS % (AUTO) 57 % (51-67); PLATELET COUNT 217 10^3uL (150-450); WHITE BLOOD COUNT 6.44 10^3uL (4.0-11.0)
[2016-10-04] MEDS ORDERED: PROMETHAZINE HCL INJ 25 MG in SODIUM CHLORIDE 25 ML IV ONE (16:10)
[2016-10-04 16:15] LABS: ALBUMIN 4.3 g/dL (3.4-5.0); ALKALINE PHOSPHATASE 77 U/L (38-126); ANION GAP 14.3 MEQ/L (3-15); BUN/CREATININE RATIO 20 (10-20); TOTAL PROTEIN 7.2 g/dL (6.4-8.5)
[2016-10-04 16:15] LABS: AMPHETAMINE SCREEN, URINE Negative (Negative); CANNABINOID SCREEN, URINE Negative (Negative); METHAMPHETAMINE SCREEN URINE S NEGATIVE (NEGATIVE); OPIATE SCREEN URINE Negative (Negative)
[2016-10-04 16:16] LABS: PROPOXYPHENE STAT NEGATIVE (NEGATIVE)
[2016-10-04] MEDS ORDERED: HALOPERIDOL 5 MG/ML (HALDOL) 1 ML AMP IV ONE (16:55)
[2016-10-04] MEDS: SODIUM CHLORIDE FLUSH 10 ML SYR IV PRN (17:07)
[2016-10-04] MEDS ORDERED: ONDANSETRON 4 MG (ZOFRAN) ORAL DISSOLVE TAB PO ONE (18:45)
[2016-10-04] MEDS ORDERED: POLYETHYLENE GLYCOL 17 GM (MIRALAX) PACKET PO PRN (19:10)
[2016-10-04 19:30] VITALS: BP 128/71
[2016-10-04 19:36] VITALS: BP 128/71
[2016-10-04] MEDS ORDERED: IBUPROFEN 800 MG (MOTRIN) TAB PO PRN (20:50)
[2016-10-04] MEDS ORDERED: BUTALBITAL PO ONE (21:00)
[2016-10-04] MEDS ORDERED: ZOLPIDEM 10 MG (AMBIEN) TAB PO ONE (21:00)
[2016-10-04] MEDS ORDERED: ASPIRIN PO ONE (21:00)
[2016-10-04] MEDS ORDERED: CAFFEINE PO ONE (21:00)
[2016-10-04 21:08] VITALS: BP 143/77
[2016-10-04] MEDS ORDERED: ALBUTEROL 0.083% NEB SOLUTION 2.5 MG/3 ML VIAL INH PRN (21:10)
[2016-10-05] VITALS (8 sets, daily range): BP systolic 110–144; BP diastolic 52–90
[2016-10-05 03:51] LABS: AMPHETAMINE SCREEN, URINE Negative (Negative); CANNABINOID SCREEN, URINE Negative (Negative); METHAMPHETAMINE SCREEN URINE S NEGATIVE (NEGATIVE); OPIATE SCREEN URINE Negative (Negative); PROPOXYPHENE STAT NEGATIVE (NEGATIVE)
[2016-10-05] MEDS: SODIUM CHLORIDE FLUSH 10 ML SYR IV PRN ×4 (04:25→14:19)
[2016-10-05] MEDS: ONDANSETRON 2 MG/ML (Z0FRAN) 2 ML VIAL IV PRN ×3 (04:25→20:17)
[2016-10-05] MEDS: BUTALBITAL PO PRN ×3 (04:30→13:13)
[2016-10-05] MEDS: ASPIRIN PO PRN ×3 (04:30→13:13)
[2016-10-05] MEDS: CAFFEINE PO PRN ×3 (04:30→13:13)
[2016-10-05] MEDS: PROMETHAZINE HCL INJ 12.5 MG in SODIUM CHLORIDE 25 ML IV PRN ×2 (05:53→13:13)
[2016-10-05 06:04] LABS: BASOPHILS % (AUTO) 0 % (0-2); EOSINOPHILS % (AUTO) 1 % (0-4); LYMPHOCYTES # (AUTO) 2.7 X10^3; MEAN CORPUSCULAR VOLUME 84 FL (80-100); MEAN PLATELET VOLUME 9.6 FL (6.0-9.5); MONOCYTES # (AUTO) 0.5 X10^3; MONOCYTES % (AUTO) 9 % (3-11); NEUTROPHILS # (AUTO) 2.8 X10^3; NEUTROPHILS % (AUTO) 46 % (51-67); PLATELET COUNT 192 10^3uL (150-450); WHITE BLOOD COUNT 6.05 10^3uL (4.0-11.0)
[2016-10-05 06:09] LABS: MEAN CORPUSCULAR HGB CONC 35.8 g/dL (31.0-37.0)
[2016-10-05 06:49] LABS: ANION GAP 14.5 MEQ/L (3-15); CALCULATED IONIZED CALCIUM 3.9 mg/dL (3.8-4.6); TOTAL PROTEIN 6.8 g/dL (6.4-8.5)
[2016-10-05] MEDS: ENOXAPARIN 40 MG/0.4 ML (LOVENOX) SYR SC SCH (08:31)
[2016-10-05] MEDS ORDERED: LORazepam 1 MG (ATIVAN) TABLET PO ONE (08:40)
[2016-10-05] MEDS: SCOPOLAMINE 1.5 MG (TRANSDERM-SCOP) PATCH TD SCH (10:53)
[2016-10-05] MEDS: diphenhydrAMINE 50 MG/ML INJ (BENADRYL) IV PRN ×4 (10:54→23:56)
[2016-10-05] MEDS: HYDROmorphone 1 MG/ML (DILAUDID) SYRINGE IV PRN ×4 (10:54→23:56)
[2016-10-05] MEDS ORDERED: SODIUM CHLORIDE 50 ML IV ONE ×2 (13:04→13:15)
[2016-10-05] MEDS ORDERED: SCOPOLAMINE 1.5 MG (TRANSDERM-SCOP) PATCH TD ONE (14:30)
[2016-10-05] MEDS ORDERED: NS FLUSH 3 ML PRN IV (17:30)
[2016-10-05] MEDS: CITALOPRAM 40 MG (CELEXA) TABLET PO SCH (17:33)
[2016-10-05] MEDS ORDERED: GI COCKTAIL 55 ML UDC PO ONE (20:10)
[2016-10-05] MEDS ORDERED: LIDOCAINE 2% VISCOUS 20ML UDC PO ONE (20:13)
[2016-10-05] MEDS ORDERED: MAG HYDROX/AL HYDROX/SIMETH 200-200-20/5 ML (MAG-AL PLUS) 30 ML UDC ONE (20:13)
[2016-10-05] MEDS: toPIRamate 25 MG (TOPAMAX) TAB PO SCH (20:18)
[2016-10-05] MEDS: PROPRANOLOL 20 MG (INDERAL) TABLET PO SCH (20:18)
[2016-10-05] MEDS: ACYCLOVIR 200 MG CAP (ZOVIRAX) PO SCH (20:18)
[2016-10-05] MEDS: MIRTAZAPINE 15 MG (REMERON) TABLET PO SCH (20:18)
[2016-10-05] MEDS ORDERED: ACYCLOVIR 400 MG PO SCH (21:00)
[2016-10-05] MEDS ORDERED: NON-FORMULARY MEDICATION 1 EA EA (Mirtazapine (Remeron) 30 MG) PO SCH (21:00)
[2016-10-05] MEDS ORDERED: PANTOPRAZOLE IV 40 MG in SODIUM CHLORIDE FLUSH 10 ML IV ONE (23:05)
[2016-10-05] MEDS ORDERED: PANTOPRAZOLE 40 MG (PROTONIX) VIAL IV ONE (23:38)
[2016-10-06 00:27] VITALS: BP 144/90
[2016-10-06] MEDS: ONDANSETRON 2 MG/ML (Z0FRAN) 2 ML VIAL IV PRN ×2 (02:55→09:12)
[2016-10-06] MEDS: HYDROmorphone 1 MG/ML (DILAUDID) SYRINGE IV PRN ×6 (02:55→20:51)
[2016-10-06] MEDS: diphenhydrAMINE 50 MG/ML INJ (BENADRYL) IV PRN ×6 (02:55→20:50)
[2016-10-06] MEDS: ASPIRIN PO PRN ×2 (04:33→10:15)
[2016-10-06] MEDS: BUTALBITAL PO PRN ×2 (04:33→10:15)
[2016-10-06] MEDS: CAFFEINE PO PRN ×2 (04:33→10:15)
[2016-10-06] MEDS: SODIUM CHLORIDE FLUSH 10 ML SYR IV PRN ×5 (06:10→16:20)
[2016-10-06] MEDS: PROMETHAZINE HCL INJ 12.5 MG in SODIUM CHLORIDE 25 ML IV PRN ×2 (06:25→14:13)
[2016-10-06 07:37] VITALS: BP 123/58
[2016-10-06 08:02] VITALS: BP 123/58
[2016-10-06] MEDS: PROPRANOLOL 20 MG (INDERAL) TABLET PO SCH ×2 (08:31→20:49)
[2016-10-06] MEDS: CITALOPRAM 40 MG (CELEXA) TABLET PO SCH (08:31)
[2016-10-06] MEDS: ACYCLOVIR 200 MG CAP (ZOVIRAX) PO SCH ×2 (08:31→20:49)
[2016-10-06] MEDS: NS FLUSH 3 ML DAILY IV SCH (08:32)
[2016-10-06] MEDS: ENOXAPARIN 40 MG/0.4 ML (LOVENOX) SYR SC SCH (08:32)
[2016-10-06] MEDS ORDERED: PANTOPRAZOLE IV 40 MG in SODIUM CHLORIDE FLUSH 10 ML IV SCH (09:00)
[2016-10-06] MEDS ORDERED: DOCUSATE SODIUM 100 MG (COLACE) CAP PO SCH (10:55)
[2016-10-06] MEDS ORDERED: POLYETHYLENE GLYCOL 17 GM (MIRALAX) PACKET PO SCH (10:55)
[2016-10-06] MEDS: MAGNESIUM HYDROXIDE 80MG/ML (MILK OF MAGNESIA) 30 ML UDC PO SCH ×2 (11:33→12:38)
[2016-10-06] MEDS: ONDANSETRON 4 MG (ZOFRAN) ORAL DISSOLVE TAB PO SCH ×3 (12:49→20:50)
[2016-10-06 15:02] VITALS: BP_SYST 110; BP_SYST 112; BP_SYST 124; BP_DIAS 58; BP_DIAS 70
[2016-10-06 15:05] VITALS: BP 110/58
[2016-10-06] MEDS ORDERED: DOCUSATE SODIUM 100 MG (COLACE) CAP PO PRN (15:20)
[2016-10-06] MEDS ORDERED: POLYETHYLENE GLYCOL 17 GM (MIRALAX) PACKET PO PRN (15:20)
[2016-10-06] MEDS ORDERED: MAGNESIUM HYDROXIDE 80MG/ML (MILK OF MAGNESIA) 30 ML UDC PO PRN (15:20)
[2016-10-06] MEDS: toPIRamate 25 MG (TOPAMAX) TAB PO SCH (20:49)
[2016-10-06] MEDS: MIRTAZAPINE 15 MG (REMERON) TABLET PO SCH (20:50)
[2016-10-07 00:14] VITALS: BP 118/69
[2016-10-07] MEDS: NS FLUSH 3 ML DAILY IV SCH (00:21)
[2016-10-07] MEDS: HYDROmorphone 1 MG/ML (DILAUDID) SYRINGE IV PRN ×4 (00:24→11:30)
[2016-10-07] MEDS: diphenhydrAMINE 50 MG/ML INJ (BENADRYL) IV PRN ×3 (04:46→11:27)
[2016-10-07 07:26] VITALS: BP 123/69
[2016-10-07] MEDS: ACYCLOVIR 200 MG CAP (ZOVIRAX) PO SCH ×2 (08:05→20:25)
[2016-10-07] MEDS: ONDANSETRON 4 MG (ZOFRAN) ORAL DISSOLVE TAB PO SCH ×2 (08:05→12:21)
[2016-10-07] MEDS: ENOXAPARIN 40 MG/0.4 ML (LOVENOX) SYR SC SCH (08:05)
[2016-10-07] MEDS: CITALOPRAM 40 MG (CELEXA) TABLET PO SCH (08:05)
[2016-10-07] MEDS: PANTOPRAZOLE 40 MG (PROTONIX) TAB PO SCH (08:05)
[2016-10-07] MEDS: PROPRANOLOL 20 MG (INDERAL) TABLET PO SCH ×2 (08:05→20:26)
[2016-10-07] MEDS: SODIUM CHLORIDE FLUSH 10 ML SYR IV PRN ×3 (08:05→11:27)
[2016-10-07] MEDS: ACETAMINOPHEN 325 MG TAB (TYLENOL) PO PRN ×2 (08:12→17:57)
[2016-10-07] MEDS ORDERED: SUMAtriptan 6 MG/0.5 ML (IMITREX) INJ SC PRN (08:40)
[2016-10-07] MEDS: PROMETHAZINE HCL INJ 12.5 MG in SODIUM CHLORIDE 25 ML IV PRN (09:03)
[2016-10-07 09:14] LABS: BASOPHILS % (AUTO) 0 % (0-2); EOSINOPHILS # (AUTO) 0.1 10^3uL; EOSINOPHILS % (AUTO) 2 % (0-4); LYMPHOCYTES # (AUTO) 1.9 X10^3; MEAN CORPUSCULAR HEMOGLOBIN 30.3 PG (26.0-34.0); MEAN CORPUSCULAR HGB CONC 36.3 g/dL (31.0-37.0); MEAN CORPUSCULAR VOLUME 84 FL (80-100); MEAN PLATELET VOLUME 9.5 FL (6.0-9.5); MONOCYTES # (AUTO) 0.5 X10^3; MONOCYTES % (AUTO) 8 % (3-11); NEUTROPHILS # (AUTO) 3.3 X10^3; NEUTROPHILS % (AUTO) 57 % (51-67); PLATELET COUNT 226 10^3uL (150-450); WHITE BLOOD COUNT 5.76 10^3uL (4.0-11.0)
[2016-10-07 09:40] LABS: ALBUMIN 4.3 g/dL (3.4-5.0); ANION GAP 14.8 MEQ/L (3-15); TOTAL PROTEIN 7.1 g/dL (6.4-8.5)
[2016-10-07 12:54] LABS: BILIRUBIN,URINE Negative (Negative); CLARITY,URINE Clear; COLOR,URINE Yellow; GLUCOSE, URINE (UA) Negative (Negative); LEUKOCYTE ESTERASE ,URINE Trace (Negative); PH,URINE 5.5 (5.0 - 8.0); UROBILINOGEN,URINE 0.2 mg/dL (0.2-1.0)
[2016-10-07 13:11] LABS: RBC,URINE 0-2 /HPF; URINE CENTRIFUGED VOLUME 12 mL
[2016-10-07] MEDS: ASPIRIN PO PRN (13:56)
[2016-10-07] MEDS: CAFFEINE PO PRN (13:56)
[2016-10-07] MEDS: BUTALBITAL PO PRN (13:56)
[2016-10-07 15:51] VITALS: BP 101/53
[2016-10-07] MEDS ORDERED: diphenhydrAMINE 50 MG (BENADRYL) CAPSULE PO PRN (16:20)
[2016-10-07] MEDS: ONDANSETRON 4 MG (ZOFRAN) ORAL DISSOLVE TAB PO PRN (17:57)
[2016-10-07] MEDS ORDERED: IBUPROFEN 800 MG (MOTRIN) TAB PO PRN (20:00)
[2016-10-07] MEDS: MIRTAZAPINE 15 MG (REMERON) TABLET PO SCH (20:26)
[2016-10-07] MEDS: toPIRamate 25 MG (TOPAMAX) TAB PO SCH (20:26)
[2016-10-08 04:00] VITALS: BP 100/80
[2016-10-08] MEDS: ACYCLOVIR 200 MG CAP (ZOVIRAX) PO SCH (08:08)
[2016-10-08] MEDS: PANTOPRAZOLE 40 MG (PROTONIX) TAB PO SCH (08:08)
[2016-10-08] MEDS: PROPRANOLOL 20 MG (INDERAL) TABLET PO SCH (08:08)
[2016-10-08] MEDS: NS FLUSH 3 ML DAILY IV SCH (08:08)
[2016-10-08] MEDS: CITALOPRAM 40 MG (CELEXA) TABLET PO SCH (08:08)
[2016-10-08] MEDS: ENOXAPARIN 40 MG/0.4 ML (LOVENOX) SYR SC SCH (08:09)
[2016-10-08] MEDS: ONDANSETRON 4 MG (ZOFRAN) ORAL DISSOLVE TAB PO PRN ×2 (08:09→12:25)
[2016-10-08 08:16] VITALS: BP 112/40
[2016-10-08] MEDS ORDERED: SCOPOLAMINE PATCH REMOVAL TOP SCH (10:39)
[2016-10-08] MEDS: ACETAMINOPHEN 325 MG TAB (TYLENOL) PO PRN (11:08)
[2016-10-08] MEDS: SCOPOLAMINE 1.5 MG (TRANSDERM-SCOP) PATCH TD SCH (11:10)
[2016-10-08 12:15] LABS: GC-CHLAMYDIA SOURCE URINE; N.gonorrhoeae SOURCE URINE
[2016-10-08] MEDS ORDERED: SODIUM CHLORIDE 50 ML IV ONE (12:51)
[2016-10-08] MEDS: PROMETHAZINE HCL INJ 12.5 MG in SODIUM CHLORIDE 25 ML IV PRN (12:54)
== END 2016-10-08 14:00 | disposition home or self-care (01) ==
LOC: ED 15:29 → MED/SURG 18:36 → INTOOBSV 18:36
PROVIDERS: ADMIT Family Medicine; ATTEND Family Medicine
DX: G43.909 Migraine, unspecified, not intractable, without status migrainosus (principal); R10.11 Right upper quadrant pain; E86.0 Dehydration; R11.2 Nausea with vomiting, unspecified; K58.2 Mixed irritable bowel syndrome; K21.9 Gastro-esophageal reflux disease without esophagitis; J45.909 Unspecified asthma, uncomplicated; R42 Dizziness and giddiness; F41.8 Other specified anxiety disorders; I10 Essential (primary) hypertension; J06.9 Acute upper respiratory infection, unspecified; B00.9 Herpesviral infection, unspecified; G47.00 Insomnia, unspecified
CPT/HCPCS: 36415; 70551; 71020; 74020; 76700; 76830; 76856; 80053; 81003; 81015; 82150; 82274; 83690; 84443; 84703; 85025; 86140; 86308; 87088; 87486; 87491; 87581; 87591; 87633; 87798; 94760; 96361; 96365; 96366; 96372; 96375; 96376; 99070; 99283; A9270; C9113; G0378; G0478; G0480; J1170; J1200; J1630; J1650; J2360; J2405; J2550; J3030; J7030; 80307; 80320; 99218

== ENCOUNTER → 2016-10-04 | Outpatient (CLI) | payer MEDICAID ==
[~2016-10-04] MED LIST changes: +AC325T PO; +ACET-789 PO; +ALBU8CC IH; +AMIT25TA9 PO; +BUSP10TA95 PO; +CEPH-507 PO; +CITA40TA5 PO; +DICY10CA26 PO; +DICY10CA59 PO; +DULO30CA3 PO; +IBP200T PO; +METR500T17 PO; +MIRT30TA PO; +ONDAN4ODT PO; +PANT40TA2 PO; +PRM25T PO; +PROP20TA5 PO; +SCR1T PO; +SULI200T8 PO; +TOPI25TA36 PO
== END ==
LOC: EMS 15:30
PROVIDERS: ATTEND Emergency Medicine
DX: G43.809 Other migraine, not intractable, without status migrainosus (principal); R42 Dizziness and giddiness; R11.0 Nausea

== ENCOUNTER 2016-10-09 19:44 | Emergency (ER) | payer MEDICAID ==
[~2016-10-09] VITALS: Ht 154.9 cm; Wt 108.1 kg
[2016-10-09] MEDS ORDERED: SODIUM CHLORIDE FLUSH 3 ML SYR IV PRN (20:10)
[2016-10-09 20:34] LABS: BASOPHILS % (AUTO) 0 % (0-2); EOSINOPHILS # (AUTO) 0.2 10^3uL; EOSINOPHILS % (AUTO) 2 % (0-4); MEAN CORPUSCULAR HEMOGLOBIN 30.4 PG (26.0-34.0); MEAN CORPUSCULAR VOLUME 84 FL (80-100); MEAN PLATELET VOLUME 9.6 FL (6.0-9.5); MONOCYTES # (AUTO) 0.5 X10^3; MONOCYTES % (AUTO) 7 % (3-11); NEUTROPHILS # (AUTO) 3.5 X10^3; NEUTROPHILS % (AUTO) 49 % (51-67); PLATELET COUNT 229 10^3uL (150-450); WHITE BLOOD COUNT 7.18 10^3uL (4.0-11.0)
[2016-10-09] MEDS ORDERED: ONDANSETRON 2 MG/ML (Z0FRAN) 2 ML VIAL IV ONE ×2 (20:40→22:50)
[2016-10-09 20:42] LABS: ALBUMIN 4.4 g/dL (3.4-5.0); ANION GAP 15.7 MEQ/L (3-15); TOTAL PROTEIN 7.3 g/dL (6.4-8.5)
[2016-10-09 20:47] LABS: BILIRUBIN,URINE Negative (Negative); COLOR,URINE Yellow; GLUCOSE, URINE (UA) Negative (Negative); LEUKOCYTE ESTERASE ,URINE Trace (Negative); UROBILINOGEN,URINE 0.2 mg/dL (0.2-1.0)
[2016-10-09] MEDS: HYDROmorphone 1 MG/ML (DILAUDID) SYRINGE IV PRN ×4 (20:47→22:27)
[2016-10-09 20:52] LABS: CLARITY,URINE Slightly Cloudy
[2016-10-09 20:53] LABS: RBC,URINE 0-2 /HPF; URINE CENTRIFUGED VOLUME 12 mL
[2016-10-09 21:25] LABS: AMYLASE* 69 U/L (25-115); LIPASE* 152 U/L (23-300)
[2016-10-09] MEDS ORDERED: diphenhydrAMINE 50 MG/ML INJ (BENADRYL) IV ONE ×2 (21:50→22:50)
[2016-10-09] MEDS: SODIUM CHLORIDE FLUSH 10 ML SYR IV PRN ×2 (21:53→22:52)
[2016-10-09] MEDS ORDERED: LORazepam 2 MG/ML (ATIVAN) 1 ML VIAL IV ONE (22:45)
[2016-10-09] MEDS ORDERED: ACETAMINOPHEN 500 MG TAB (TYLENOL) PO ONE (22:55)
[2016-10-09] MEDS ORDERED: BACITRACIN OINTMENT 0.9 GM PACKET TOP ONE ×2 (23:10→23:25)
[2016-10-10] MEDS ORDERED: PROMETHAZINE 25 MG/ML (PHENERGAN) 1 ML VIAL IM ONE (00:05)
[2016-10-10] MEDS: HYDROmorphone 1 MG/ML (DILAUDID) SYRINGE IV PRN (00:55)
[2016-10-10 01:33] VITALS: BP 145/78
== END 2016-10-10 01:38 | disposition home or self-care (01) ==
LOC: ED 19:46
DX: R10.11 Right upper quadrant pain (principal)
CPT/HCPCS: 36415; 74178; 80053; 81003; 81015; 81025; 82150; 83690; 85025; 87088; 96361; 96372; 96374; 96375; 96376; 99284; A9270; J1170; J1200; J2060; J2405; J2550; J7030; Q9967; 99283

== ENCOUNTER 2016-10-11 10:08 | Emergency (ER) | payer MEDICAID ==
[~2016-10-11] VITALS: Ht 154.9 cm; Wt 107.3 kg
[~2016-10-11 10:08] MED LIST changes: -ACET-789 PO; -AMIT25TA9 PO; -CEPH-507 PO; -DICY10CA26 PO; -DICY10CA59 PO; -DULO30CA3 PO; -METR500T17 PO; -SCR1T PO
--- NOTE | 2016-10-11 10:27 | NUR ---
PT REPORTS "LOOSE STOOLS" & WHEN CLARIFIED BY THIS RN WHAT LOOSE MEANS SHE THEN STATES HER STOOL AT 0900 TODAY WAS SOFT & FORMED. CL
[2016-10-11] MEDS ORDERED: SODIUM CHLORIDE FLUSH 3 ML SYR IV PRN (10:50)
[2016-10-11] MEDS ORDERED: PROMETHAZINE HCL INJ 25 MG in SODIUM CHLORIDE 25 ML IV ONE (10:50)
[2016-10-11] MEDS ORDERED: SODIUM CHLORIDE FLUSH 10 ML SYR IV PRN (10:50)
[2016-10-11] MEDS ORDERED: diphenhydrAMINE 50 MG/ML INJ (BENADRYL) IV SCH (10:50)
[2016-10-11 10:58] LABS: BILIRUBIN,URINE Negative (Negative); CLARITY,URINE Clear; COLOR,URINE Yellow; GLUCOSE, URINE (UA) Negative (Negative); LEUKOCYTE ESTERASE ,URINE Negative (Negative); PH,URINE 6.5 (5.0 - 8.0); UROBILINOGEN,URINE 0.2 mg/dL (0.2-1.0)
[2016-10-11 11:06] LABS: BASOPHILS % (AUTO) 0 % (0-2); EOSINOPHILS # (AUTO) 0.1 10^3uL; EOSINOPHILS % (AUTO) 1 % (0-4); LYMPHOCYTES # (AUTO) 1.9 X10^3; MEAN CORPUSCULAR HEMOGLOBIN 30.1 PG (26.0-34.0); MEAN CORPUSCULAR VOLUME 84 FL (80-100); MEAN PLATELET VOLUME 9.9 FL (6.0-9.5); MONOCYTES # (AUTO) 0.4 X10^3; MONOCYTES % (AUTO) 7 % (3-11); NEUTROPHILS # (AUTO) 3.5 X10^3; NEUTROPHILS % (AUTO) 59 % (51-67); PLATELET COUNT 218 10^3uL (150-450); WHITE BLOOD COUNT 5.94 10^3uL (4.0-11.0)
[2016-10-11 11:07] LABS: MEAN CORPUSCULAR HGB CONC 35.8 g/dL (31.0-37.0)
[2016-10-11 11:09] LABS: URINE CENTRIFUGED VOLUME 12 mL
[2016-10-11 11:18] LABS: ALBUMIN 4.3 g/dL (3.4-5.0); CALCULATED IONIZED CALCIUM 4.1 mg/dL (3.8-4.6); TOTAL PROTEIN 7.2 g/dL (6.4-8.5)
--- NOTE | 2016-10-11 12:11 | NUR ---
DR LOMBARDO TALKS WITH DR GAGNON RE PT. CL
--- NOTE | 2016-10-11 12:15 | NUR ---
PT CALLS ON NURSE CALL BUTTON APPX EVERY 5-10 MIN TO HAVE NURSE TELL PT SHES "STILL IN PAIN". WHILE PHENERGAN INFUSING PT STATES SHE IS STILL NAUSEATED & BEGINS TO STRAIN TO COUGH HARD. REQUESTS AGAIN THAT THIS RN NOTIFIES DR LOMBARDO OF NAUSEA/PAIN. CL
--- NOTE | 2016-10-11 12:47 | NUR ---
DR DUQUE HERE SEEING PT. CL
--- NOTE | 2016-10-11 13:02 | NUR ---
AFTER DR DUQUE OUT, PT CALLS OUT TO STATE "IM NOT LYING". "I REALLY AM HAVING A LOT OF PAIN. I KNOW THEY ARENT GOING TO DO ANYTHING BUT WANT HIM TO KNOW." DR LOMBARDO NOTIFIED. CL
--- NOTE | 2016-10-11 13:29 | NUR ---
PT INFORMED LAB WILL BE VIEWED BY DR DUQUE. DECLINES A DRINK AGAIN. CL
--- NOTE | 2016-10-11 13:37 | NUR ---
DR DUQUE CALLS TO TALK TO DR LOMBARDO RE PT. CL
--- NOTE | 2016-10-11 13:41 | NUR ---
ORDERS NOTED FROM DR LOMBARDO. CL
--- NOTE | 2016-10-11 13:59 | NUR ---
PT REPORTS NAUSEA "VERY BAD". NOTIFIED. CL
[2016-10-11] MEDS ORDERED: ONDANSETRON 2 MG/ML (Z0FRAN) 2 ML VIAL IV STA (14:01)
[2016-10-11] MEDS ORDERED: LORazepam 1 MG (ATIVAN) TABLET PO ONE (14:30)
[2016-10-11] MEDS ORDERED: PRM25T PO (14:39)
[2016-10-11] MEDS ORDERED: ACET-789 PO (14:39)
--- NOTE | 2016-10-11 15:00 | NUR ---
VITALS CYCLING EVERY 15 MIN WHILE IN ED & WNL. COMPUTER CLEARED PRIOR TO BEING PRINTED. CL
[2016-10-11 17:52] VITALS: BP 111/64
[2016-10-20] MEDS ORDERED: AMIT25TA9 PO (19:14)
[2016-10-20] MEDS ORDERED: SCR1T PO (19:14)
[2016-10-20] MEDS ORDERED: DICY10CA26 PO (19:14)
[2016-10-23] MEDS ORDERED: DICY10CA59 PO (02:46)
[2016-10-23] MEDS ORDERED: METR500T17 PO (21:31)
[2016-10-23] MEDS ORDERED: CEPH-507 PO (21:31)
[2016-11-05] MEDS ORDERED: DULO30CA3 PO (20:34)
== END 2016-10-11 15:08 | disposition home or self-care (01) ==
LOC: EDUNIT# 10:08 → ED 10:10
DX: R10.84 Generalized abdominal pain (principal)
CPT/HCPCS: 36415; 80053; 81003; 81015; 82274; 85025; 86140; 96365; 96375; 99291; A9270; J1200; J2405; J2550; J7030; 99283

== ENCOUNTER 2016-10-15 10:24 | Emergency (ER) | payer MEDICAID ==
[~2016-10-15] VITALS: Ht 154.9 cm; Wt 106.5 kg
[2016-10-15] MEDS ORDERED: SODIUM CHLORIDE FLUSH 10 ML SYR IV PRN (10:40)
[2016-10-15] MEDS ORDERED: SODIUM CHLORIDE FLUSH 3 ML SYR IV PRN (10:40)
[2016-10-15] MEDS ORDERED: ONDANSETRON 2 MG/ML (Z0FRAN) 2 ML VIAL IV ONE (10:40)
[2016-10-15 11:05] LABS: BASOPHILS % (AUTO) 0 % (0-2); EOSINOPHILS % (AUTO) 0 % (0-4); LYMPHOCYTES # (AUTO) 1.7 X10^3; MEAN CORPUSCULAR HEMOGLOBIN 30.4 PG (26.0-34.0); MEAN CORPUSCULAR VOLUME 84 FL (80-100); MONOCYTES # (AUTO) 0.4 X10^3; MONOCYTES % (AUTO) 6 % (3-11); NEUTROPHILS % (AUTO) 70 % (51-67); PLATELET COUNT 198 10^3uL (150-450); WHITE BLOOD COUNT 7.14 10^3uL (4.0-11.0)
[2016-10-15] MEDS ORDERED: PROMETHAZINE HCL INJ 25 MG in SODIUM CHLORIDE 25 ML IV ONE (11:05)
[2016-10-15 11:10] LABS: BILIRUBIN,URINE Negative (Negative); CLARITY,URINE Clear; COLOR,URINE Yellow; GLUCOSE, URINE (UA) Negative (Negative); LEUKOCYTE ESTERASE ,URINE Negative (Negative); UROBILINOGEN,URINE 0.2 mg/dL (0.2-1.0)
[2016-10-15] MEDS ORDERED: HYDROmorphone 1 MG/ML (DILAUDID) SYRINGE IV ONE ×3 (11:10→12:25)
[2016-10-15 11:13] LABS: MEAN CORPUSCULAR HGB CONC 36.2 g/dL (31.0-37.0)
[2016-10-15 11:14] LABS: HCG,QUALITATIVE URINE Negative (Negative)
[2016-10-15 11:14] LABS: ALBUMIN 4.3 g/dL (3.4-5.0)
[2016-10-15 11:23] LABS: URINE CENTRIFUGED VOLUME 12 mL
--- NOTE | 2016-10-15 11:42 | NUR ---
Patient reports severe pain and nausea continuing. Dr. Kim notified.
[2016-10-15] MEDS ORDERED: diphenhydrAMINE 50 MG/ML INJ (BENADRYL) IV ONE (11:50)
--- NOTE | 2016-10-15 12:17 | NUR ---
This nurse calls [facility]ist paged.
[2016-10-15 12:47] LABS: AMPHETAMINE SCREEN, URINE Negative (Negative); CANNABINOID SCREEN, URINE Negative (Negative); METHAMPHETAMINE SCREEN URINE S NEGATIVE (NEGATIVE); OPIATE SCREEN URINE Positive (Negative); PROPOXYPHENE STAT NEGATIVE (NEGATIVE)
--- NOTE | 2016-10-15 13:01 | NUR ---
pt accepted to [facility] by Dr. España
[2016-10-15 13:15] VITALS: BP 116/72
[2016-10-15] MEDS ORDERED: HYDROmorphone 2 MG/ML (DILAUDID) 1 ML SYRINGE IV ONE (13:20)
--- NOTE | 2016-10-15 13:40 | NUR ---
Dilaudid 2 mg given IV left forearm as patient put on EMS stretcher. Order in [facility].
== END 2016-10-15 13:20 ==
LOC: ED 10:25
DX: R10.11 Right upper quadrant pain (principal); R19.7 Diarrhea, unspecified; R11.11 Vomiting without nausea; Z90.49 Acquired absence of other specified parts of digestive tract
CPT/HCPCS: 36415; 80053; 81003; 81015; 81025; 83690; 85025; 96361; 96374; 96375; 96376; 99283; G0478; J1170; J1200; J2405; J2550; J7030; 80307

== ENCOUNTER → 2016-10-15 | Outpatient (CLI) | payer MEDICAID | LOC: EMS 13:20 | PROVIDERS: ATTEND Emergency Medicine | DX: R10.11 Right upper quadrant pain (principal); R11.2 Nausea with vomiting, unspecified; R19.7 Diarrhea, unspecified ==

== ENCOUNTER 2016-10-20 18:36 | Emergency (ER) | payer MEDICAID ==
[~2016-10-20] VITALS: Ht 154.9 cm; Wt 107.5 kg
--- NOTE | 2016-10-20 19:09 | NUR ---
Pt states to this nurse that pt had a spinal tap with normal results and an upper GI scope with 2 biopsies. Pt stated that at [facility] told her she may have bacteria in her stomach but is waiting on results from biopsies. Pt has an apt with surgeon on nov 01. Addendum: 10/20/16 at 4 by [id number] MD notified.
[2016-10-20] MEDS ORDERED: fentaNYL 100 MCG/2 ML VIAL IV ONE (19:30)
[2016-10-20] MEDS ORDERED: ONDANSETRON 2 MG/ML (Z0FRAN) 2 ML VIAL IV ONE (19:30)
[2016-10-20 19:32] LABS: BASOPHILS % (AUTO) 0 % (0-2); EOSINOPHILS # (AUTO) 0.1 10^3uL; EOSINOPHILS % (AUTO) 2 % (0-4); LYMPHOCYTES # (AUTO) 2.5 X10^3; MEAN CORPUSCULAR HEMOGLOBIN 30.1 PG (26.0-34.0); MEAN CORPUSCULAR VOLUME 84 FL (80-100); MEAN PLATELET VOLUME 10.5 FL (6.0-9.5); MONOCYTES # (AUTO) 0.6 X10^3; MONOCYTES % (AUTO) 9 % (3-11); NEUTROPHILS # (AUTO) 3.2 X10^3; NEUTROPHILS % (AUTO) 50 % (51-67); PLATELET COUNT 200 10^3uL (150-450); WHITE BLOOD COUNT 6.41 10^3uL (4.0-11.0)
[2016-10-20] MEDS ORDERED: SODIUM CHLORIDE FLUSH 3 ML SYR IV ONE (19:35)
[2016-10-20 19:40] LABS: ALBUMIN 4.8 g/dL (3.4-5.0); ANION GAP 15.9 MEQ/L (3-15); TOTAL PROTEIN 7.8 g/dL (6.4-8.5)
[2016-10-20 19:43] LABS: BILIRUBIN,URINE Negative (Negative); CLARITY,URINE Cloudy; COLOR,URINE Yellow; GLUCOSE, URINE (UA) Negative (Negative); LEUKOCYTE ESTERASE ,URINE Trace (Negative); UROBILINOGEN,URINE 0.2 mg/dL (0.2-1.0)
[2016-10-20 19:46] LABS: MEAN CORPUSCULAR HGB CONC 35.6 g/dL (31.0-37.0)
[2016-10-20 19:48] LABS: URINE CENTRIFUGED VOLUME 12 mL
[2016-10-20 19:49] LABS: AMPHETAMINE SCREEN, URINE Negative (Negative); CANNABINOID SCREEN, URINE Negative (Negative); METHAMPHETAMINE SCREEN URINE S NEGATIVE (NEGATIVE); OPIATE SCREEN URINE Positive (Negative)
[2016-10-20 19:50] LABS: PROPOXYPHENE STAT NEGATIVE (NEGATIVE)
--- NOTE | 2016-10-20 19:52 | NUR ---
This nurse started an IV in left AC after first iv infiltrated.
--- NOTE | 2016-10-20 19:53 | NUR ---
After starting an IV in left AC with no pain response, Pt states her left arm has been numb and tingling since yesterday but didn't say anything about it because the doctors have been telling her she isn't having a heart attack.
[2016-10-20] MEDS: SODIUM CHLORIDE FLUSH 10 ML SYR IV PRN (20:03)
[2016-10-20 20:06] VITALS: BP 109/70
== END 2016-10-20 20:20 | disposition home or self-care (01) ==
LOC: ED 18:36
DX: M94.0 Chondrocostal junction syndrome [Tietze] (principal); R06.4 Hyperventilation; F41.9 Anxiety disorder, unspecified; R07.89 Other chest pain
CPT/HCPCS: 36415; 71010; 80053; 81003; 81015; 83690; 84703; 85025; 85379; 85610; 86140; 87088; 93005; 96374; 96375; 99284; G0478; J2405; J3010; 80307; 93010

== ENCOUNTER 2016-10-22 21:12 | Emergency (ER) | payer MEDICAID ==
[~2016-10-22] VITALS: Ht 157.5 cm; Wt 106.6 kg
[2016-10-22] MEDS ORDERED: PROMETHAZINE 25 MG/ML (PHENERGAN) 1 ML VIAL IM ONE (21:40)
[2016-10-22] MEDS ORDERED: HYDROmorphone 1 MG/ML (DILAUDID) SYRINGE IM ONE (21:40)
[2016-10-22 21:57] LABS: BASOPHILS % (AUTO) 0 % (0-2); EOSINOPHILS # (AUTO) 0.1 10^3uL; EOSINOPHILS % (AUTO) 1 % (0-4); LYMPHOCYTES # (AUTO) 2.6 X10^3; MEAN CORPUSCULAR HGB CONC 34.9 g/dL (31.0-37.0); MEAN CORPUSCULAR VOLUME 86 FL (80-100); MEAN PLATELET VOLUME 9.7 FL (6.0-9.5); MONOCYTES # (AUTO) 0.5 X10^3; MONOCYTES % (AUTO) 9 % (3-11); NEUTROPHILS # (AUTO) 2.6 X10^3; NEUTROPHILS % (AUTO) 45 % (51-67); PLATELET COUNT 214 10^3uL (150-450); WHITE BLOOD COUNT 5.86 10^3uL (4.0-11.0)
[2016-10-22 22:05] LABS: ALBUMIN 4.4 g/dL (3.4-5.0); ANION GAP 15.6 MEQ/L (3-15); CALCULATED IONIZED CALCIUM 4.1 mg/dL (3.8-4.6); TOTAL PROTEIN 7.2 g/dL (6.4-8.5)
[2016-10-22] MEDS ORDERED: LORazepam 2 MG/ML (ATIVAN) 1 ML VIAL IV ONE (22:50)
[2016-10-22] MEDS ORDERED: HYDROmorphone 1 MG/ML (DILAUDID) SYRINGE IV ONE (22:50)
[2016-10-22] MEDS ORDERED: SODIUM CHLORIDE FLUSH 3 ML SYR IV PRN (22:50)
[2016-10-22] MEDS: SODIUM CHLORIDE FLUSH 10 ML SYR IV PRN (23:19)
[2016-10-22 23:25] LABS: BILIRUBIN,URINE Negative (Negative); CLARITY,URINE Clear; COLOR,URINE Yellow; GLUCOSE, URINE (UA) Negative (Negative); LEUKOCYTE ESTERASE ,URINE Trace (Negative); UROBILINOGEN,URINE 0.2 mg/dL (0.2-1.0)
[2016-10-22 23:31] LABS: URINE CENTRIFUGED VOLUME 12 mL
[2016-10-22 23:32] LABS: RBC,URINE 0-2 /HPF
[2016-10-22] MEDS ORDERED: diphenhydrAMINE 50 MG/ML INJ (BENADRYL) IV ONE (23:35)
[2016-10-22] MEDS ORDERED: cefTRIAXone SODIUM 1,000 MG in SODIUM CHLORIDE 50 ML IV ONE (23:40)
[2016-10-23] MEDS ORDERED: HYDROmorphone 1 MG/ML (DILAUDID) SYRINGE IV ONE (00:25)
[2016-10-23] MEDS ORDERED: ONDANSETRON 2 MG/ML (Z0FRAN) 2 ML VIAL IV ONE (00:25)
[2016-10-23] MEDS ORDERED: methylPREDNISolone 125 MG (Solu-MEDROL) VIAL IV ONE (00:30)
[2016-10-23] MEDS ORDERED: LORazepam 2 MG/ML (ATIVAN) 1 ML VIAL IV ONE (01:30)
[2016-10-23] MEDS: SODIUM CHLORIDE FLUSH 10 ML SYR IV PRN (01:34)
--- NOTE | 2016-10-23 01:40 | NUR ---
Patient upset wanting to leave AMA d/t still complaining of pain and Dr. Gagnon explained to her that he will not give her more Dilaudid until he has the CT results. I stayed with patient and talked with her, explaining why we can't just give her more pain medications and different meds until we know what showes up on the CT, I explained how some medications can make certain conditions worse so we have to be careful with what we choose to give. Patient has had very little pain relief with all we have given her. Was saying things like, "I just want to go home, I know the CT will not show anything is wrong anyway." Patient agreed to stay until the CT results are back at this time.
--- NOTE | 2016-10-23 02:58 | NUR ---
When entering patient's room to dismiss her she had taken all the sheets off the bed and rolled them up neatly, picked any thing that needed thrown away and placed in trash can. Already had her IV out by her self and had a cotton ball on site and taped. She was taking off gloves when I entered room. I assesed site to make sure it wasn't bleeding and checked the IV to make sure the tip was still in tact. Walked patient out to her Test Facility Engineer lucia and spoke with her and explained that patient should not drive or operate heavy machinery tonight. "production stage manager agreed".
[2016-10-23 03:06] VITALS: BP 125/72
== END 2016-10-23 02:59 | disposition home or self-care (01) ==
LOC: ED 21:13
DX: K92.1 Melena (principal); N39.0 Urinary tract infection, site not specified; R10.11 Right upper quadrant pain
CPT/HCPCS: 36415; 74178; 80053; 81003; 81015; 81025; 85025; 85610; 87088; 96361; 96365; 96372; 96375; 96376; 99284; J0696; J1170; J1200; J2060; J2405; J2550; J2930; J7030; Q9967; 99283

== ENCOUNTER 2016-10-23 19:34 | Emergency (ER) | payer MEDICAID ==
[~2016-10-23] VITALS: Ht 157.5 cm; Wt 107.2 kg
[2016-10-23] MEDS ORDERED: DICYCLOMINE 10 MG (BENTYL) CAP PO ONE (20:25)
--- NOTE | 2016-10-23 20:32 | NUR ---
PT STATES FOSTERYL IS NOT GOING TO HELP
[2016-10-23] MEDS: metroNIDAZOLE 500 MG (FLAGYL) TABLET PO ONE ×2 (21:11→21:28)
[2016-10-23] MEDS: predniSONE 20 MG (DELTASONE) TABLET PO ONE ×2 (21:11→21:28)
[2016-10-23] MEDS: CEPHALEXIN 500 MG (KEFLEX) CAPSULE PO ONE ×2 (21:11→21:28)
[2016-10-23 21:16] LABS: BASOPHILS % (AUTO) 0 % (0-2); EOSINOPHILS % (AUTO) 0 % (0-4); LYMPHOCYTES # (AUTO) 2.3 X10^3; MEAN CORPUSCULAR HEMOGLOBIN 30.7 PG (26.0-34.0); MEAN CORPUSCULAR HGB CONC 35.3 g/dL (31.0-37.0); MEAN CORPUSCULAR VOLUME 87 FL (80-100); MEAN PLATELET VOLUME 10.1 FL (6.0-9.5); MONOCYTES # (AUTO) 0.9 X10^3; MONOCYTES % (AUTO) 11 % (3-11); NEUTROPHILS # (AUTO) 5.3 X10^3; NEUTROPHILS % (AUTO) 62 % (51-67); PLATELET COUNT 203 10^3uL (150-450); WHITE BLOOD COUNT 8.55 10^3uL (4.0-11.0)
[2016-10-23 21:22] LABS: ALBUMIN 4.3 g/dL (3.4-5.0); ANION GAP 16.6 MEQ/L (3-15); TOTAL PROTEIN 7.2 g/dL (6.4-8.5)
[2016-10-23 21:30] LABS: BILIRUBIN,URINE Negative (Negative); CLARITY,URINE Clear; COLOR,URINE Yellow; GLUCOSE, URINE (UA) Negative (Negative); LEUKOCYTE ESTERASE ,URINE Negative (Negative); PH,URINE 5.5 (5.0 - 8.0); UROBILINOGEN,URINE 0.2 mg/dL (0.2-1.0)
[2016-10-23 21:34] LABS: RBC,URINE 0-2 /HPF; URINE CENTRIFUGED VOLUME <10mL Unspun
--- NOTE | 2016-10-23 21:35 | NUR ---
PER DR ORELLANA CAN OFFER PT ATARAX SO DID SHE REFUSED SAID SHE IS NOT SWALLOWING ANYMORE PILLS MAKES HER STOMACH HURT AND SHE HAS THAT AND BUSPAR AT HOME AND IT DOESN'T WORK
[2016-10-23 21:39] LABS: AMPHETAMINE SCREEN, URINE Negative (Negative); CANNABINOID SCREEN, URINE Negative (Negative); METHAMPHETAMINE SCREEN URINE S NEGATIVE (NEGATIVE); OPIATE SCREEN URINE Positive (Negative); PROPOXYPHENE STAT NEGATIVE (NEGATIVE)
[2016-10-23] MEDS ORDERED: [UNRECOGNIZED DRUG - OTHER] PO ONE (21:50)
[2016-10-23 21:54] VITALS: BP 131/65
== END 2016-10-23 22:03 | disposition home or self-care (01) ==
LOC: ED 19:36
DX: K62.5 Hemorrhage of anus and rectum (principal); R10.84 Generalized abdominal pain; F41.9 Anxiety disorder, unspecified; R51 Headache
CPT/HCPCS: 36415; 80053; 81003; 81015; 85025; 99282; A9270; G0478; 80307; 99283

== ENCOUNTER → 2016-10-27 | Outpatient (CLI) | payer MEDICAID | LOC: LAB 08:05 | PROVIDERS: ATTEND Family Medicine | DX: E78.2 Mixed hyperlipidemia (principal); E13.65 Other specified diabetes mellitus with hyperglycemia; E03.4 Atrophy of thyroid (acquired) | CPT/HCPCS: 36415; 80061; 83036; 84436; 84443 ==

== ENCOUNTER 2016-11-05 20:01 | Emergency (ER) | payer MEDICAID ==
[~2016-11-05] VITALS: Ht 154.9 cm; Wt 107.5 kg
[2016-11-05] MEDS ORDERED: ONDANSETRON 4 MG (ZOFRAN) ORAL DISSOLVE TAB PO ONE (20:40)
[2016-11-05 21:08] LABS: BASOPHILS % (AUTO) 0 % (0-2); EOSINOPHILS # (AUTO) 0.1 10^3uL; EOSINOPHILS % (AUTO) 1 % (0-4); LYMPHOCYTES # (AUTO) 2.2 X10^3; MEAN CORPUSCULAR VOLUME 86 FL (80-100); MEAN PLATELET VOLUME 9.7 FL (6.0-9.5); MONOCYTES # (AUTO) 0.4 X10^3; MONOCYTES % (AUTO) 7 % (3-11); NEUTROPHILS # (AUTO) 2.9 X10^3; NEUTROPHILS % (AUTO) 53 % (51-67); PLATELET COUNT 206 10^3uL (150-450)
[2016-11-05 21:10] LABS: HCG,QUALITATIVE URINE Negative (Negative)
[2016-11-05 21:11] LABS: BILIRUBIN,URINE Negative (Negative); CLARITY,URINE Clear; COLOR,URINE Yellow; GLUCOSE, URINE (UA) Negative (Negative); LEUKOCYTE ESTERASE ,URINE Negative (Negative); PH,URINE 5.5 (5.0 - 8.0); UROBILINOGEN,URINE 0.2 mg/dL (0.2-1.0)
[2016-11-05 21:14] LABS: ALBUMIN 4.4 g/dL (3.4-5.0); ANION GAP 14.8 MEQ/L (3-15); CALCULATED IONIZED CALCIUM 4.1 mg/dL (3.8-4.6); TOTAL PROTEIN 7.2 g/dL (6.4-8.5)
[2016-11-05 21:16] LABS: URINE CENTRIFUGED VOLUME 12 mL
[2016-11-05 21:17] LABS: RBC,URINE 0-2 /HPF
[2016-11-05] MEDS ORDERED: diphenhydrAMINE 50 MG/ML INJ (BENADRYL) IV ONE (21:25)
[2016-11-05 21:40] LABS: MEAN CORPUSCULAR HEMOGLOBIN 31.4 PG (26.0-34.0); MEAN CORPUSCULAR HGB CONC 36.7 g/dL (31.0-37.0)
--- NOTE | 2016-11-05 21:46 | NUR ---
Pt with small amount emesis. Will notify Dr. Ulrich.
[2016-11-05] MEDS ORDERED: ONDANSETRON 2 MG/ML (Z0FRAN) 2 ML VIAL IV ONE (21:50)
[2016-11-05] MEDS ORDERED: HYDROmorphone 1 MG/ML (DILAUDID) SYRINGE IV ONE (22:05)
[2016-11-05] MEDS ORDERED: SODIUM CHLORIDE FLUSH 10 ML SYR IV PRN (22:20)
[2016-11-05] MEDS ORDERED: SODIUM CHLORIDE FLUSH 3 ML SYR IV ONE (22:20)
[2016-11-05] MEDS ORDERED: PROMETHAZINE HCL INJ 25 MG in SODIUM CHLORIDE 25 ML IV ONE (22:30)
[2016-11-05 22:36] LABS: AMPHETAMINE SCREEN, URINE Negative (Negative); CANNABINOID SCREEN, URINE Negative (Negative); METHAMPHETAMINE SCREEN URINE S NEGATIVE (NEGATIVE); OPIATE SCREEN URINE Negative (Negative); PROPOXYPHENE STAT NEGATIVE (NEGATIVE)
[2016-11-05] MEDS ORDERED: LORazepam 2 MG/ML (ATIVAN) 1 ML VIAL IV ONE (23:55)
[2016-11-06] MEDS ORDERED: HYDROmorphone 1 MG/ML (DILAUDID) SYRINGE IV ONE (00:55)
[2016-11-06 01:14] VITALS: BP 118/69
== END 2016-11-06 01:29 | disposition home or self-care (01) ==
LOC: ED 20:03
DX: F11.20 Opioid dependence, uncomplicated (principal); R11.2 Nausea with vomiting, unspecified; T40.2X5A Adverse effect of other opioids, initial encounter; F43.0 Acute stress reaction; G89.29 Other chronic pain; R10.84 Generalized abdominal pain
CPT/HCPCS: 36415; 74178; 80053; 81003; 81015; 81025; 82274; 83690; 85025; 96361; 96365; 96375; 96376; 99284; A9270; G0478; J1170; J1200; J2060; J2405; J2550; J7030; Q9967; 80307; 99283

== ENCOUNTER → 2016-11-17 | Outpatient (REF) | payer MEDICAID ==
[2016-11-17 17:01] LABS: BILIRUBIN,URINE Negative (Negative); CLARITY,URINE Cloudy; COLOR,URINE Yellow; GLUCOSE, URINE (UA) Negative (Negative); LEUKOCYTE ESTERASE ,URINE Negative (Negative); UROBILINOGEN,URINE 0.2 mg/dL (0.2-1.0)
== END ==
LOC: LAB 16:49
PROVIDERS: ATTEND Obstetrics & Gynecology
DX: Z01.419 Encounter for gynecological examination (general) (routine) without abnormal findings (principal)
CPT/HCPCS: 81003; 87210

== ENCOUNTER → 2016-12-01 | Outpatient (CLI) | payer MEDICAID | LOC: RAD 13:40 | PROVIDERS: ATTEND Family Medicine | DX: I82.433 Acute embolism and thrombosis of popliteal vein, bilateral (principal) | CPT/HCPCS: 93970 ==

== ENCOUNTER 2016-12-27 18:56 | Emergency (ER) | payer MEDICAID ==
[~2016-12-27] VITALS: Ht 154.9 cm; Wt 104.3 kg
[2016-12-27] MEDS ORDERED: HYDROmorphone 1 MG/ML (DILAUDID) SYRINGE IV ONE ×3 (19:30→21:20)
[2016-12-27] MEDS ORDERED: SODIUM CHLORIDE FLUSH 10 ML SYR IV PRN (19:30)
[2016-12-27] MEDS ORDERED: ONDANSETRON 2 MG/ML (Z0FRAN) 2 ML VIAL IV ONE (19:30)
[2016-12-27] MEDS ORDERED: SODIUM CHLORIDE FLUSH 3 ML SYR IV ONE (19:30)
[2016-12-27 19:55] LABS: BILIRUBIN,URINE Negative (Negative); CLARITY,URINE Clear; COLOR,URINE Yellow; GLUCOSE, URINE (UA) Negative (Negative); LEUKOCYTE ESTERASE ,URINE Negative (Negative); PH,URINE 5.5 (5.0 - 8.0); UROBILINOGEN,URINE 0.2 mg/dL (0.2-1.0)
[2016-12-27 19:56] LABS: BASOPHILS % (AUTO) 0 % (0-2); EOSINOPHILS # (AUTO) 0.1 10^3uL; EOSINOPHILS % (AUTO) 1 % (0-4); LYMPHOCYTES # (AUTO) 1.9 X10^3; MEAN CORPUSCULAR HEMOGLOBIN 30.2 PG (26.0-34.0); MEAN CORPUSCULAR VOLUME 84 FL (80-100); MEAN PLATELET VOLUME 10.1 FL (6.0-9.5); MONOCYTES # (AUTO) 0.6 X10^3; MONOCYTES % (AUTO) 7 % (3-11); NEUTROPHILS # (AUTO) 6.1 X10^3; NEUTROPHILS % (AUTO) 70 % (51-67); PLATELET COUNT 243 10^3uL (150-450); WHITE BLOOD COUNT 8.71 10^3uL (4.0-11.0)
[2016-12-27 20:01] LABS: ALBUMIN 4.8 g/dL (3.4-5.0); ALKALINE PHOSPHATASE 83 U/L (38-126); AMYLASE* 85 U/L (25-115); ANION GAP 19.8 MEQ/L (3-15); BUN/CREATININE RATIO 17 (10-20); CALCULATED IONIZED CALCIUM 3.8 mg/dL (3.8-4.6); LIPASE* 85 U/L (23-300)
[2016-12-27 20:03] LABS: RBC,URINE 0-2 /HPF; URINE CENTRIFUGED VOLUME <10mL Unspun
[2016-12-27 20:04] LABS: AMPHETAMINE SCREEN, URINE Negative (Negative); CANNABINOID SCREEN, URINE Negative (Negative); METHAMPHETAMINE SCREEN URINE S NEGATIVE (NEGATIVE); OPIATE SCREEN URINE Negative (Negative); PROPOXYPHENE STAT NEGATIVE (NEGATIVE)
--- NOTE | 2016-12-27 20:22 | Diagnostic Imaging Report ---
PROCEDURE: CT abdomen and pelvis without contrast. TECHNIQUE: Multiple contiguous axial images were obtained through the abdomen and pelvis without the use of intravenous contrast. INDICATION: Right lower quadrant and right flank pain Lung bases are clear. Liver appears normal. The gallbladder is surgically absent. Pancreas appears normal. There is large amount of food residue in the stomach. Spleen is not enlarged. Kidneys and adrenals appear normal. The appendix is normal. Small bowel is not dilated. There is large amount of stool throughout the colon. There is no intraperitoneal free air or free fluid. Uterus is present. Adnexa are unremarkable. Urinary bladder is decompressed. Impression: Negative CT abdomen and pelvis Dictated by: Dictated on workstation # [id number]
--- NOTE | 2016-12-27 20:24 | NUR ---
Pt appears to be more comfortable at this time, after the 2nd 1mg of Dilaudid.
--- NOTE | 2016-12-27 20:40 | NUR ---
Pt states that she feels like there is more pressure building in her right lower abdomen.
--- NOTE | 2016-12-27 21:20 | NUR ---
Pt contiinues to complain of pain, Dr. Zapata was notified.
--- NOTE | 2016-12-27 21:27 | NUR ---
Pt given another 1mg of Dilaudid IV for pain.
--- NOTE | 2016-12-27 21:45 | NUR ---
Shani JAUREGUI went in to d/c pt, pt stated that she wanted to talk to the Dr., Dr Zapata was notified, pt stated that her the pt and her casey saw operator did not want the pt to leave with out something being done.
--- NOTE | 2016-12-27 21:55 | NUR ---
This RN went in to see pt, RN sat down to talk to pt and explain to her that her labs and CT were with no acute findings. Pt then stated "just give me the paper to sign so I can get out of here, I've already been told 4 times" "I guess everyone is right about this hospital" Pt's IV was removed.
--- NOTE | 2016-12-27 22:00 | NUR ---
Pt calls RN back in and stated that her bilingual patient support caseworker wanted to know if DR. Zapata was going to send her home on any pain medications. Dr. Zapata was notified and pt sent home with a prepack of medications.
[2016-12-27] MEDS ORDERED: ED- HYDROcodone/ACETAMINOPHEN 5MG/325MG (NORCO) 6 TABLETS/BTL PO ONE (22:05)
[2016-12-27 22:19] VITALS: BP 125/73
== END 2016-12-27 22:10 | disposition home or self-care (01) ==
LOC: ED 18:57
DX: R10.31 Right lower quadrant pain (principal)
CPT/HCPCS: 36415; 74176; 80053; 80307; 81003; 81015; 82150; 83690; 84703; 85025; 86140; 96361; 96374; 96375; 96376; 99283; A9270; J1170; J2405; J7030

== ENCOUNTER → 2016-12-27 | Outpatient (CLI) | payer MEDICAID ==
[~2016-12-27] MED LIST changes: +ACET-789 PO; +AMIT25TA9 PO; +CEPH-507 PO; +DICY10CA26 PO; +DICY10CA59 PO; +DULO30CA3 PO; +METR500T17 PO; +SCR1T PO
[2016-12-27 18:58] VITALS: BP 124/86
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
== END ==
LOC: MHUC 18:24
PROVIDERS: ATTEND Physician Assistant Medical
DX: R10.11 Right upper quadrant pain (principal); R11.10 Vomiting, unspecified

== ENCOUNTER 2017-01-14 17:33 | Emergency (ER) | payer MEDICAID ==
[~2017-01-14] VITALS: Ht 170.2 cm; Wt 64.0 kg
[2017-01-14] MEDS: ONDANSETRON 2 MG/ML (Z0FRAN) 2 ML VIAL IV ONE (20:19)
[2017-01-14] MEDS: HYDROmorphone 1 MG/ML (DILAUDID) SYRINGE IV ONE ×2 (20:20→21:31)
[2017-01-14] MEDS: SODIUM CHLORIDE FLUSH 3 ML SYR IV PRN (20:22)
[2017-01-14] MEDS: diphenhydrAMINE 50 MG/ML INJ (BENADRYL) IV ONE (20:45)
[2017-01-14] MEDS: LORazepam 2 MG/ML (ATIVAN) 1 ML VIAL IV ONE (22:05)
[2017-01-14] MEDS: SODIUM CHLORIDE FLUSH 10 ML SYR IV PRN (22:05)
[2017-01-14 22:15] VITALS: BP 118/54
[2017-01-15] MEDS ORDERED: QUET25TA31 PO (03:50)
[2017-01-15] MEDS ORDERED: DICL50TA4 PO (03:50)
--- NOTE | 2017-01-15 08:03 | Diagnostic Imaging Report ---
PROCEDURE: CT head and CT cervical spine without contrast. TECHNIQUE: Multiple contiguous axial images were obtained through the brain and cervical spine without the use of intravenous contrast. Sagittal and coronal reformations through the cervical spine were then performed. INDICATION: Head injury, head and neck pain. CT head: There is no hemorrhage, hydrocephalus, edema, mass, mass effect, or evidence for elevated intracranial pressures. Orbits, sinuses, and calvarium were within normal limits. The basilar cisterns patent. There is no hemo-sinus. CT cervical spine: Cervical body heights maintained. The alignment anatomic. No facet joint dislocation. No acute or suspicious endplate irregularity. No cervical fracture is identified. No evidence for paravertebral hematoma. No dislocation. IMPRESSION: CT head: Negative CT cervical spine: Negative Agree with preliminary. Dictated by: Dictated on workstation # [id number]
== END 2017-01-14 22:14 | disposition home or self-care (01) ==
LOC: ED 17:34
DX: G43.909 Migraine, unspecified, not intractable, without status migrainosus (principal)
CPT/HCPCS: 70450; 72125; 96361; 96374; 96375; 96376; 99283; J1170; J1200; J2060; J2405; J7030

== ENCOUNTER → 2017-01-24 | Outpatient (CLI) | payer MEDICAID ==
[~2017-01-24] MED LIST changes: +DICL100G13 TOP; +DICL50TA4 PO; +QUET25TA31 PO
[2017-01-24 17:11] VITALS: BP 118/74
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
== END ==
LOC: MHUC 16:20
PROVIDERS: ATTEND Physician Assistant
DX: R10.84 Generalized abdominal pain (principal); K64.4 Residual hemorrhoidal skin tags
CPT/HCPCS: 99213

== ENCOUNTER 2017-02-01 12:01 | Emergency (ER) | payer MEDICAID ==
[~2017-02-01] VITALS: Ht 154.9 cm; Wt 107.0 kg
[2017-02-01 12:12] VITALS: BP 126/76
--- NOTE | 2017-02-01 14:07 | NUR ---
PT CALLS TO [facility] TO HAVE US LET ER KNOW THAT HER "PAIN IS GETTING WORSE...ITS AT A 10". WHEN INFORMED THAT WAS THE ORIGINAL NUMBER & INQUIRED IF THE PAIN IS DIFFERENT THAN ARRIVAL PAIN, PT STATES "ITS THE SAME". CL
--- NOTE | 2017-02-01 14:19 | NUR ---
PT CALLS TO [facility] TO LET STAFF KNOW THAT SHE STILL HAS PAIN 07/05. INFORMED ED MD OF SAME. SHE WILL BE NEXT PT SEEN D/T FULL ED OF [facility]. CL
[2017-02-01 14:36] LABS: BASOPHILS % (AUTO) 0 % (0-2); EOSINOPHILS # (AUTO) 0.1 10^3uL; EOSINOPHILS % (AUTO) 1 % (0-4); LYMPHOCYTES # (AUTO) 2.3 X10^3; MEAN CORPUSCULAR HEMOGLOBIN 30.4 PG (26.0-34.0); MEAN CORPUSCULAR VOLUME 86 FL (80-100); MEAN PLATELET VOLUME 10.3 FL (6.0-9.5); MONOCYTES # (AUTO) 0.5 X10^3; MONOCYTES % (AUTO) 6 % (3-11); NEUTROPHILS # (AUTO) 5.4 X10^3; NEUTROPHILS % (AUTO) 65 % (51-67); PLATELET COUNT 222 10^3uL (150-450); WHITE BLOOD COUNT 8.28 10^3uL (4.0-11.0)
[2017-02-01 14:38] LABS: MEAN CORPUSCULAR HGB CONC 35.5 g/dL (31.0-37.0)
--- NOTE | 2017-02-01 14:40 | NUR ---
PT UP TO TOILET IN ROOM TO URINATE. TRANSFERS SELF WITHOUT ASSIST. ASKS FOR NAUSEA AND PAIN MED - REQUEST RELAYED TO DR. RUIZ.
[2017-02-01 14:43] LABS: ALBUMIN 4.1 g/dL (3.4-5.0); ANION GAP 15.4 MEQ/L (3-15); CALCULATED IONIZED CALCIUM 4.1 mg/dL (3.8-4.6); TOTAL PROTEIN 7.1 g/dL (6.4-8.5)
[2017-02-01] MEDS ORDERED: LORazepam 2 MG/ML (ATIVAN) 1 ML VIAL IV ONE (14:45)
[2017-02-01] MEDS ORDERED: HYDROmorphone 1 MG/ML (DILAUDID) SYRINGE IV ONE (14:45)
[2017-02-01] MEDS: SODIUM CHLORIDE FLUSH 10 ML SYR IV PRN ×2 (14:55→14:58)
[2017-02-01] MEDS ORDERED: OXAP600T2 PO (14:58)
[2017-02-02] MEDS ORDERED: ONDA4TAB8 PO (16:53)
[2017-02-02] MEDS ORDERED: HYDR-3702 PO (16:53)
[2017-02-02] MEDS ORDERED: LORA1TAB PO (17:09)
== END 2017-02-01 15:13 | disposition home or self-care (01) ==
LOC: ED 12:03
DX: R07.89 Other chest pain (principal); F41.9 Anxiety disorder, unspecified
CPT/HCPCS: 36415; 80053; 85025; 93005; 96374; 96375; 99285; J1170; J2060; 93010; 99284

== ENCOUNTER 2017-02-02 08:00 | Outpatient (RCR) | payer MEDICAID ==
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
[~2017-02-02 08:00] MED LIST changes: +OXAP600T2 PO
[2017-02-02] MEDS ORDERED: HYDR-3702 PO (16:53)
[2017-02-02] MEDS ORDERED: ONDA4TAB8 PO (16:53)
[2017-02-02] MEDS ORDERED: LORA1TAB PO (17:09)
== END 2017-02-21 13:06 | disposition home or self-care (01) ==
LOC: PT 08:00
PROVIDERS: ATTEND Dentist General Practice
DX: M25.561 Pain in right knee (principal)

== ENCOUNTER 2017-02-02 15:25 | Emergency (ER) | payer MEDICAID ==
[~2017-02-02] VITALS: Ht 154.9 cm; Wt 102.0 kg
[2017-02-02 16:08] LABS: BASOPHILS % (AUTO) 0 % (0-2); EOSINOPHILS # (AUTO) 0.1 10^3uL; EOSINOPHILS % (AUTO) 1 % (0-4); LYMPHOCYTES # (AUTO) 2.2 X10^3; MEAN CORPUSCULAR HEMOGLOBIN 30.4 PG (26.0-34.0); MEAN CORPUSCULAR HGB CONC 35.3 g/dL (31.0-37.0); MEAN CORPUSCULAR VOLUME 86 FL (80-100); MEAN PLATELET VOLUME 9.6 FL (6.0-9.5); MONOCYTES # (AUTO) 0.4 X10^3; MONOCYTES % (AUTO) 7 % (3-11); NEUTROPHILS % (AUTO) 59 % (51-67); PLATELET COUNT 211 10^3uL (150-450); WHITE BLOOD COUNT 6.79 10^3uL (4.0-11.0)
[2017-02-02] MEDS ORDERED: PROMETHAZINE 25 MG/ML (PHENERGAN) 1 ML VIAL IM ONE (16:10)
[2017-02-02] MEDS ORDERED: fentaNYL 100 MCG/2 ML VIAL IM ONE (16:10)
[2017-02-02] MEDS ORDERED: LORazepam 2 MG/ML (ATIVAN) 1 ML VIAL IM ONE (16:10)
[2017-02-02 16:11] LABS: BILIRUBIN,URINE Negative (Negative); CLARITY,URINE Clear; COLOR,URINE Yellow; GLUCOSE, URINE (UA) Negative (Negative); LEUKOCYTE ESTERASE ,URINE Negative (Negative); UROBILINOGEN,URINE 0.2 mg/dL (0.2-1.0)
[2017-02-02 16:19] LABS: AMPHETAMINE SCREEN, URINE Negative (Negative); CANNABINOID SCREEN, URINE Negative (Negative); METHAMPHETAMINE SCREEN URINE S NEGATIVE (NEGATIVE); OPIATE SCREEN URINE Negative (Negative); PROPOXYPHENE STAT NEGATIVE (NEGATIVE)
[2017-02-02 16:20] LABS: RBC,URINE 0-2 /HPF; URINE CENTRIFUGED VOLUME 12 mL
[2017-02-02 16:20] LABS: CREATINE KINASE 56 U/L (30-135)
[2017-02-02 16:22] LABS: ALBUMIN 4.2 g/dL (3.4-5.0); ANION GAP 15.9 MEQ/L (3-15); CALCULATED IONIZED CALCIUM 4.2 mg/dL (3.8-4.6); TOTAL PROTEIN 6.8 g/dL (6.4-8.5)
[2017-02-02] MEDS ORDERED: LORazepam 1 MG (ATIVAN) TABLET PO ONE (16:45)
[2017-02-02] MEDS ORDERED: HYDROcodone/APAP 5 MG/325 MG (NORCO) TAB PO ONE (16:45)
[2017-02-02] MEDS ORDERED: ONDANSETRON 4 MG (ZOFRAN) ORAL DISSOLVE TAB PO ONE (16:45)
[2017-02-02] MEDS ORDERED: ONDA4TAB8 PO (16:53)
[2017-02-02] MEDS ORDERED: HYDR-3702 PO (16:53)
[2017-02-02] MEDS ORDERED: LORA1TAB PO (17:09)
[2017-02-02 17:12] VITALS: BP 101/45
== END 2017-02-02 17:13 | disposition home or self-care (01) ==
LOC: ED 15:26
DX: F41.9 Anxiety disorder, unspecified (principal); R06.4 Hyperventilation; R11.11 Vomiting without nausea; M94.0 Chondrocostal junction syndrome [Tietze]; R07.89 Other chest pain
CPT/HCPCS: 36415; 80053; 80307; 81003; 81015; 82550; 82553; 83690; 84484; 84703; 85025; 86140; 93005; 96372; 99284; A9270; J2060; J2550; J3010; 93010

== ENCOUNTER 2017-02-06 20:19 | Emergency (ER) | payer MEDICAID ==
[~2017-02-06] VITALS: Ht 154.9 cm; Wt 102.0 kg
[2017-02-06] MEDS: ONDANSETRON 2 MG/ML (Z0FRAN) 2 ML VIAL IV ONE ×2 (21:21→22:16)
[2017-02-06 21:36] LABS: BASOPHILS % (AUTO) 0 % (0-2); EOSINOPHILS # (AUTO) 0.1 10^3uL; EOSINOPHILS % (AUTO) 1 % (0-4); LYMPHOCYTES # (AUTO) 2.5 X10^3; MEAN CORPUSCULAR HEMOGLOBIN 30.7 PG (26.0-34.0); MEAN CORPUSCULAR VOLUME 84 FL (80-100); MEAN PLATELET VOLUME 10.1 FL (6.0-9.5); MONOCYTES # (AUTO) 0.4 X10^3; MONOCYTES % (AUTO) 8 % (3-11); NEUTROPHILS # (AUTO) 2.5 X10^3; NEUTROPHILS % (AUTO) 46 % (51-67); PLATELET COUNT 199 10^3uL (150-450); WHITE BLOOD COUNT 5.53 10^3uL (4.0-11.0)
[2017-02-06 21:37] LABS: MEAN CORPUSCULAR HGB CONC 36.4 g/dL (31.0-37.0)
--- NOTE | 2017-02-06 21:41 | NUR ---
Pt refused the Ativan IV that Dr. Ulrich ordered for her, she wants to talk to Dr. Ulrich prior to taking the Ativan, explained that the is seeing some other patient at this time but this RN will let him know. Dr. Ulrich was notified. Pt has called loss control engineer button 2 times, and asked to see the and to report that her pain is getting worse, and if Amy her case loader operator calls to be sure and have her talk to Dr. Ulrich. Pt was assured each time that Dr. Ulrich would be and was notified of her request to see him.
[2017-02-06 21:42] LABS: ALBUMIN 4.2 g/dL (3.4-5.0); ANION GAP 15.4 MEQ/L (3-15); CALCULATED IONIZED CALCIUM 3.9 mg/dL (3.8-4.6); TOTAL PROTEIN 7.2 g/dL (6.4-8.5)
--- NOTE | 2017-02-06 21:54 | NUR ---
Pt calls out promotion officer light this RN answers pt call light, she complains of her "pain is getting worse and so is the nausea". Told pt that Dr. Ulrich was finishing with another pt and would be in to see her
[2017-02-06] MEDS: LORazepam 2 MG/ML (ATIVAN) 1 ML VIAL IV ONE (22:16)
[2017-02-06] MEDS: fentaNYL 100 MCG/2 ML VIAL IV ONE ×2 (22:17→23:17)
--- NOTE | 2017-02-06 22:17 | NUR ---
Pt now agrees to take the Ativan ordered earlier, this was given
--- NOTE | 2017-02-06 22:22 | NUR ---
pt up to the br and voided, after the fact she reports some burning with voiding, and now tells the RN that she also had some burning this afternoon as well. RN told pt if she goes again we will collect a specimen
[2017-02-06 23:17] LABS: BILIRUBIN,URINE Negative (Negative); COLOR,URINE Yellow; GLUCOSE, URINE (UA) Negative (Negative); LEUKOCYTE ESTERASE ,URINE Negative (Negative); PH,URINE 5.5 (5.0 - 8.0); UROBILINOGEN,URINE 0.2 mg/dL (0.2-1.0)
[2017-02-06 23:22] LABS: CLARITY,URINE Slightly Cloudy
[2017-02-06 23:23] LABS: RBC,URINE 0-2 /HPF; URINE CENTRIFUGED VOLUME 12 mL
[2017-02-07 00:09] VITALS: BP 119/57
== END 2017-02-06 23:55 | disposition home or self-care (01) ==
LOC: ED 20:20
DX: G89.29 Other chronic pain (principal); R10.84 Generalized abdominal pain; F11.20 Opioid dependence, uncomplicated
CPT/HCPCS: 36415; 80053; 81003; 81015; 85025; 96361; 96374; 96375; 96376; 99285; J2060; J2405; J3010; J7030; 99282

== ENCOUNTER → 2017-02-06 | Outpatient (CLI) | payer MEDICAID ==
[~2017-02-06] MED LIST changes: +HYDR-3702 PO; +LORA1TAB PO; +ONDA4TAB8 PO
== END ==
LOC: EMS 20:15
PROVIDERS: ATTEND Emergency Medicine
DX: R11.2 Nausea with vomiting, unspecified (principal); R53.1 Weakness; R42 Dizziness and giddiness

== ENCOUNTER → 2017-02-08 | Outpatient (CLI) | payer MEDICAID ==
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
== END ==
LOC: RAD 09:22
PROVIDERS: ATTEND Physician Assistant
DX: M25.561 Pain in right knee (principal)
CPT/HCPCS: 73721

== ENCOUNTER 2017-02-10 15:04 | Emergency (ER) | payer MEDICAID ==
[~2017-02-10] VITALS: Ht 154.9 cm; Wt 105.0 kg
--- NOTE | 2017-02-10 15:18 | NUR ---
WHILE THIS RN LEAVES ROOM TO INFORM ED MD OF PT ADMIT TO ED, I RETURNED QUICKLY TO THE ROOM TO ASK PT A QUESTION. WHEN THE CURTAIN WAS PULLED BACK, PT FOUND TO HAVE HER FINGERS IN HER THROAT, GAGGING & SHE IMMED STATES "I HAVE SOMETHING ON MY TONGUE TO GET OFF". DR RUIZ NOTIFIED. NO EMESIS. CL
--- NOTE | 2017-02-10 16:11 | NUR ---
PT CALLS OUT AFTER TALKING WITH ED DR (SARA) & STATES SHE DOESN'T WANT "THE SHOT...I WANT TO GO HOME". PT IS TALKING ON THE HOSPITAL PHONE AT THIS TIME. DAUGHTER AT THE BEDSIDE. CL
--- NOTE | 2017-02-10 16:12 | NUR ---
PT NOW CLIMBS OUT END OF BED WITH BILAT RAILS UP & STATES "WHY DO I NEED PAPERS"? INFORMED SHE NEEDS DC PAPERWORK. PT STATES "TRY & HURRY PLEASE". CL
--- NOTE | 2017-02-10 16:13 | NUR ---
PT COMES TO DESK TO ASK DR RUIZ "BEFORE WE LEAVE CAN I TALK TO YOU FOR A SEC"? DR RUIZ STATES "YES". CL
[2017-02-10 16:33] VITALS: BP 127/71
== END 2017-02-10 17:41 | disposition home or self-care (01) ==
LOC: EDUNIT# 15:04 → ED 15:06
DX: F50.89 Other specified eating disorder (principal)
CPT/HCPCS: 99281; 99282

== ENCOUNTER 2017-02-20 23:31 | Emergency (ER) | payer MEDICAID ==
[~2017-02-20] VITALS: Ht 154.9 cm; Wt 100.0 kg
[2017-02-21 00:54] LABS: BASOPHILS % (AUTO) 0 % (0-2); EOSINOPHILS % (AUTO) 1 % (0-4); LYMPHOCYTES # (AUTO) 2.3 X10^3; MEAN CORPUSCULAR HEMOGLOBIN 30.9 PG (26.0-34.0); MEAN CORPUSCULAR VOLUME 85 FL (80-100); MEAN PLATELET VOLUME 9.6 FL (6.0-9.5); MONOCYTES # (AUTO) 0.5 X10^3; MONOCYTES % (AUTO) 9 % (3-11); NEUTROPHILS # (AUTO) 3.2 X10^3; NEUTROPHILS % (AUTO) 53 % (51-67); PLATELET COUNT 206 10^3uL (150-450); WHITE BLOOD COUNT 6.13 10^3uL (4.0-11.0)
[2017-02-21 01:04] LABS: BILIRUBIN,URINE Negative (Negative); CLARITY,URINE Clear; COLOR,URINE Yellow; GLUCOSE, URINE (UA) Negative (Negative); LEUKOCYTE ESTERASE ,URINE Negative (Negative); PH,URINE 5.5 (5.0 - 8.0); UROBILINOGEN,URINE 0.2 mg/dL (0.2-1.0)
[2017-02-21 01:05] LABS: ALBUMIN 4.5 g/dL (3.4-5.0); ALKALINE PHOSPHATASE 74 U/L (38-126); ANION GAP 13.9 MEQ/L (3-15); BUN/CREATININE RATIO 16 (10-20); CALCULATED IONIZED CALCIUM 3.9 mg/dL (3.8-4.6); TOTAL PROTEIN 7.5 g/dL (6.4-8.5)
[2017-02-21 01:15] LABS: AMPHETAMINE SCREEN, URINE Negative (Negative); CANNABINOID SCREEN, URINE Negative (Negative); HCG,QUALITATIVE URINE Negative (Negative); METHAMPHETAMINE SCREEN URINE S NEGATIVE (NEGATIVE); OPIATE SCREEN URINE Positive (Negative); PROPOXYPHENE STAT NEGATIVE (NEGATIVE)
[2017-02-21 01:17] LABS: MEAN CORPUSCULAR HGB CONC 36.5 g/dL (31.0-37.0)
--- NOTE | 2017-02-21 01:48 | NUR ---
CALL TO [facility] REQUESTING ADMIT
--- NOTE | 2017-02-21 01:51 | NUR ---
[facility] NURSE LATOYA SAID THAT THEY DO NOT PROVIDE SERVICES TO PT ON MEDICAID. THE PT WOULD BE SELF PAY. THEY WOULD IF PT HAD MEDICARE AND MEDICAID.
--- NOTE | 2017-02-21 02:10 | NUR ---
HX OF DEPRESSION AND SUICIDAL THOUGHTS SAYS SHE PLANS ON TAKING PILLS OD OR CUTTING SELF
--- NOTE | 2017-02-21 02:16 | NUR ---
PT SAID SHE WOULD KILL HERSELF HER DEPRESSION WORSENING.
--- NOTE | 2017-02-21 02:17 | NUR ---
CALLED [facility] [place] AND SPOKE WITH ROD. INFORMATION TAKEN TO FAX OVER FACE SHEET AND SUMMARY WITH LAB
--- NOTE | 2017-02-21 03:06 | NUR ---
have not heard from [facility] yet so called them back to check on status and the nurse there (shamika) has not had a chance to notify velia grimes yet.
--- NOTE | 2017-02-21 03:08 | NUR ---
ROD THE NURSE AT [facility] CALLED BACK AND SAID THE DR SAID NO THAT THEY CANNOT MEET HER NEEDS
[2017-02-21] MEDS ORDERED: SUMAtriptan 6 MG/0.5 ML (IMITREX) INJ SC ONE (03:15)
[2017-02-21] MEDS ORDERED: diphenhydrAMINE 50 MG/ML INJ (BENADRYL) IV ONE (03:15)
[2017-02-21] MEDS ORDERED: LORazepam 2 MG/ML (ATIVAN) 1 ML VIAL IV ONE (03:15)
[2017-02-21] MEDS ORDERED: LORazepam 2 MG/ML (ATIVAN) 1 ML VIAL IM ONE (03:30)
[2017-02-21] MEDS ORDERED: diphenhydrAMINE 50 MG (BENADRYL) CAPSULE PO ONE ×2 (03:30→06:50)
[2017-02-21] MEDS ORDERED: HYDROmorphone 1 MG/ML (DILAUDID) SYRINGE IV ONE (04:15)
[2017-02-21] MEDS ORDERED: PROMETHAZINE 25 MG/ML (PHENERGAN) 1 ML VIAL IM ONE (04:20)
--- NOTE | 2017-02-21 04:33 | NUR ---
CALL TO [facility] SPOKE WITH NURSE WHO TRANSFER CALL TO DR OLSEN THIS RN GAVE PHONE OVER TO DR COOPER FOR DOC TO DOC
[2017-02-21] MEDS ORDERED: HYDROmorphone 1 MG/ML (DILAUDID) SYRINGE IM ONE ×2 (04:35→05:45)
--- NOTE | 2017-02-21 04:44 | NUR ---
DR COOPER REPORTS THAT DR OLSEN ACCEPTS PT AT [facility]
--- NOTE | 2017-02-21 05:29 | NUR ---
CALLED EMS SPOKE TO [facility] ABOUT TRANSFER. THEY ARE NOT ABLE TO TRANSFER UNTIL THE OTHER EMS GETS BACK FROM [place], SAID IT WOULD PROBABLY BE AROUND 0700.
--- NOTE | 2017-02-21 05:32 | NUR ---
PHENERGAN AND DILAUDID WERE GIVEN IM SO NO IV START / STOP TIMES
--- NOTE | 2017-02-21 06:02 | NUR ---
RN LET PATIENT KNOW THAT WHEN SHE GOT TO [facility] SHE WOULD HAVE TO BE IN A HOSPITAL GOWN FOR FIRST DAY AND WAS NOT ALLOWED TO HAVE HER CELL PHONE THERE THAT SHE WOULD HAVE TO GIVE IT TO THE NURSES. VOICED SHE UNDERSTANDS.
[2017-02-21 06:57] VITALS: BP 131/71
== END 2017-02-21 07:00 ==
LOC: ED 23:33
DX: R45.851 Suicidal ideations (principal); F32.9 Major depressive disorder, single episode, unspecified; F41.9 Anxiety disorder, unspecified
CPT/HCPCS: 36415; 80053; 80307; 81003; 81025; 85025; 96372; 99283; A9270; G0480; J1170; J2060; J2550; J3030; 80320; 80329

== ENCOUNTER → 2017-02-21 | Outpatient (CLI) | payer MEDICAID | LOC: EMS 06:56 | PROVIDERS: ATTEND Psychiatry & Neurology Psychiatry | DX: R45.851 Suicidal ideations (principal); F32.9 Major depressive disorder, single episode, unspecified ==